=== PATIENT | female | born 1955 | race Caucasian/White ===

== ENCOUNTER → 2019-05-10 15:26 | Outpatient (CLI) | payer BC, SELFPAY ==
--- NOTE | 2019-05-10 15:29 | XR_ITS ---
PROCEDURE: XR ANKLE WT BEARING LT MIN 3V CLINICAL INDICATION: Fracture follow-up Pain following injury COMPARISON: XR ANKLE LT MIN 3V from 04/15/2019 FINDINGS: Ankle joint has an unremarkable appearance. Lateral soft tissue swelling has improved. A small calcific density is present along the anterior and distal aspect of the talus and may represent an avulsion type fracture not significantly changed. This could also be due to small osteophyte. IMPRESSION: No change small osteophyte versus avulsion fracture of the anterior distal talus Dictated by: Nikhil Jaime MD 05/10/2019 17:21 Electronically signed by Nikhil Jaime MD in [place] 05/10/2019 17:21
== END ==
PROVIDERS: PCP Family Medicine; Visit Provider Podiatrist
DX: S93.492D Sprain of other ligament of left ankle, subsequent encounter (principal); M25.572 Pain in left ankle and joints of left foot
CPT/HCPCS: 73610

== ENCOUNTER 2020-07-08 17:29 | Emergency (ER) | payer BC, SELFPAY ==
[2020-07-08 18:12] VITALS: BP 144/82; PULSE 130; RESP 14; TEMP 36.8; O2SAT 98; BMI 22.8
--- NOTE | 2020-07-08 18:18 | HMH.EDUTC ---
[facility] [place] Disposition Clinical Impression: Exposure to COVID-19 virus Pharyngitis Qualifiers: Pharyngitis/tonsillitis etiology: other specified organisms Qualified Code(s): J02.8 - Acute pharyngitis due to other specified organisms Disposition: Home, Self-Care Condition on Discharge: Good Instructions: Preventing the Spread of Coronavirus Discharge Instructions Additional Instructions: Drink plenty of fluids. Take tylenol for pain or fever. Take the medications as directed. Follow up with your regular doctor. GO TO THE ER FOR ANY WORSENING SYMPTOMS Prescriptions: Azithromycin [Z-Yfn 250mg Tab*] 250 mg PO UD DOSE PK #6 tab Transmission Status: Received by [facility] Referrals: Naun Blue MD [Primary Care Provider] - Time of Disposition: 18:24 Medical Decision Making - Medical Records Medical records reviewed: No: I reviewed the patient's medical records. - Jose David Inquiry Pt receiving controlled substance: No Vital Signs: 07/08/20 18:12 07/08/20 18:34 Temperature 98.3 F 98.3 F Temperature Source Oral Oral Pulse Rate 125 H Pulse Rate [Right] 130 H Respiratory Rate 14 16 Blood Pressure 140/80 Blood Pressure [Right Arm] 144/82 H Blood Pressure Mean [Right Arm] 102 Blood Pressure Source Automatic Cuff Blood Pressure Source [Right Arm] Automatic Cuff Blood Pressure Position Sitting Blood Pressure Position [Right Arm] Sitting 02 Sat by Pulse Oximetry 98 Oxygen Delivery Method Room Air Orders (Tests/Meds): ORDERS Category Date Time Status Covid-19 Nasal PCR ([facility]) Routine Lab 07/08/20 18:00 Received [facility] [place] HPI - General Stated complaint: Sore throat, cough, Shortness of breath, headache Time Seen by Provider: 07/08/20 18:18 Mode of Arrival: Ambulatory Source of Information: Patient Limitations: No Limitations Description of Symptoms (Recalled from Triage Doc. by RN): sore throat with blisters HEENT Symptoms (Recalled from RN notes): No Resp Symptoms (Recalled from RN notes): No Skin Symptoms (Recalled from RN notes): No MS Symptoms (Recalled from RN notes): No Functional Status (Recalled from RN notes): na - History of Present Illness Provider Complaint: She c/o cough and sinus congestion for the past 2 days. She has flown back from [place] recently, so she has been exposed to covid. - Related Data Home Medications Medication Instructions Recorded Confirmed Cholecalciferol (Vitamin D3) 2,000 unit PO DAILY 04/15/19 05/10/19 [Vitamin D3 1,000 Unit Cap] Estrogens, Conjugated [Premarin] 0.625 mg PO DAILY 04/15/19 05/10/19 Hydroxychloroquine Sulfate 200 mg PO DAILY 04/15/19 05/10/19 [Plaquenil 200mg tablet] Leflunomide [Arava] 20 mg PO DAILY 04/15/19 05/10/19 Omeprazole Magnesium [Prilosec Otc 40 mg PO DAILY 04/15/19 05/10/19 20mg Tab] levothyroxine 137 mcg tablet 137 mcg PO #90 tab 05/10/19 05/10/19 Previous Rx's Medication Instructions Recorded Azithromycin [Z-Yfn 250mg Tab*] 250 mg PO UD DOSE PK #6 tab 07/08/20 Allergies Allergy/AdvReac Type Severity Reaction Status Date / Time No Known Allergies Allergy Verified 05/10/19 16:12 - Worker's Comp Is this a Worker's Comp case?: No [facility] History - Hepatitis A Screen Drug use history?: No High risk sexual behaviors?: No History of sexually transmitted infection?: No Currently employed?: No Childcare worker?: No Do you have indoor plumbing?: Yes Do you have electricity?: Yes Attestation statement:: This patient has been screened for Hepatitis A risk factors. I have reviewed the patient's past medical history: Yes Other Medical History: Reports: Arthritis (rheumatoid ), Hypothyroidism, Other (lupus ) Other Surgeries: Yes: Appendectomy, Hysterectomy-Total Amputation: No Fractures: No - Social History Smoking Status: Never smoker Alcohol Intake: current Alcohol Intake Frequency:: holidays/special occasions only Substance Use Type: denies use Occupational Status
[2020-07-08 18:34] VITALS: BP 140/80; PULSE 125; RESP 16; TEMP 36.8; O2SAT 98
== END 2020-07-08 18:35 | disposition home or self-care (01) ==
PROVIDERS: Emergency Provider Nurse Practitioner Family; PCP Family Medicine
DX: Z20.828 Contact with and (suspected) exposure to other viral communicable diseases (principal); J02.8 Acute pharyngitis due to other specified organisms; E03.9 Hypothyroidism, unspecified
CPT/HCPCS: 99201; U0003

== ENCOUNTER → 2021-01-25 10:40 | Outpatient (CLI) | payer BC, SELFPAY ==
[2021-01-25 11:12] LABS: Basophils # 0.1 K/mm3 (0-0.2); Eosinophils # 0.1 K/mm3 (0.0-0.4); Eosinophils % 2.3 % (0.1-12.0); Hematocrit 38.2 % (37.0-47.0); Hemoglobin 12.4 g/dL (12.2-16.2); Lymphocytes # 1.1 K/mm3 (0.7-4.5); Lymphocytes % 19.9 % (10-50); Mean Corpuscular HGB Conc 32.4 g/dL (31.8-35.4); Mean Corpuscular Hemoglobin 31.6 pg (27.0-31.2); Mean Corpuscular Volume 97.5 fl (81-99); Mean Platelet Volume 7.6 fl (7.4-10.4); Monocytes # 0.3 K/mm3 (0.1-1.0); Monocytes % 5.9 % (1.7-9.3); Neutrophils % 70.9 % (37.0-80.0); Platelet Count 229 K/mm3 (142-424); Red Blood Count 3.92 M/mm3 (4.20-5.40); Red Cell Distribution Width 13.4 % (11.5-17.5); White Blood Count 5.7 K/mm3 (4.8-10.8)
[2021-01-25 12:08] LABS: Erythrocyte Sedimentation Rate 37 mm/hr (0-30)
[2021-01-25 12:20] LABS: Alanine Aminotransferase 24 U/L (12-78); Albumin Level 4.1 g/dl (3.5-5.0); Albumin/Globulin Ratio 1.6 (1.1-1.8); Alkaline Phosphatase 85 U/L (38-126); Anion Gap 6.2 mEq/L (5-15); Aspartate Amino Transferase 32 U/L (14-36); Bilirubin,Total 0.6 mg/dl (0.2-1.3); Blood Urea Nitrogen 16 mg/dl (7-17); Calcium 9.2 mg/dl (8.4-10.2); Carbon Dioxide 31 mmol/L (22.0-30.0); Chloride 108 mmol/L (98-107); Estimated Glomerular Filt Rate 72 ml/min (>60); GFR (African American) 87 ML/MIN (>60); Globulin 2.6 g/dL (1.3-3.2); Glucose 62 mg/dl (74-100); Potassium 4.2 mmoL/L (3.5-5.1); Sodium 141 mmol/L (136-145); Total Protein,Serum 6.7 g/dl (6.3-8.2)
[2021-01-25 12:25] LABS: C-Reactive Protein 1.4 mg/L (0-4)
[2021-01-25 12:37] LABS: T4 (Thyroxine) 11.1 ug/dl (5.53-11.0)
[2021-01-25 12:51] LABS: Thyroid Stimulating Hormone 0.71 uIU/mL (0.465-4.68)
== END ==
PROVIDERS: PCP Family Medicine; Visit Provider Family Medicine
DX: M06.9 Rheumatoid arthritis, unspecified (principal); E03.9 Hypothyroidism, unspecified; L93.0 Discoid lupus erythematosus
CPT/HCPCS: 36415; 80053; 84436; 84443; 85025; 85651; 86140

== ENCOUNTER → 2021-01-28 15:13 | Outpatient (CLI) | payer BC, SELFPAY | PROVIDERS: PCP Family Medicine; Visit Provider Family Medicine | DX: I47.1 Supraventricular tachycardia (principal) | CPT/HCPCS: 93306 ==

== ENCOUNTER → 2021-01-30 17:27 | Outpatient (CLI) | payer BC, SELFPAY | PROVIDERS: PCP Family Medicine; Visit Provider Family Medicine | DX: I47.1 Supraventricular tachycardia (principal) | CPT/HCPCS: 93225; 93226 ==

== ENCOUNTER 2021-04-10 20:11 | Emergency (ER) | payer BC, SELFPAY ==
[2021-04-10 20:15] VITALS: BP 159/84; PULSE 108; RESP 16; TEMP 36.9; O2SAT 96; BMI 23.6
--- NOTE | 2021-04-10 20:37 | HMH.EDUTC ---
[facility] [place] Disposition Clinical Impression: Sinusitis Qualifiers: Sinusitis location: unspecified location Chronicity: unspecified Qualified Code(s): J32.9 - Chronic sinusitis, unspecified Disposition: Home, Self-Care Condition on Discharge: Good Instructions: Sinusitis, Sinus Headache, DI for Sinusitis, DI for Cough -- Adult Additional Instructions: *Monitor Temp, Over the counter Motrin or Tylenol as directed/as needed Tylenol every 4 hours and Motrin every 6 hours (as long as your family doctor has told you that you can take it) for fever or pain. and straight to ER if unable to lower temp less than 101.0 after medication given *Warm salt water gargles may help to soothe the throat *Throat Lozenges *Warm fluids like tea with honey may help to soothe the throat *Sleep elevated *Humidifier/Vaporizer *Flonase 2 sprays in each nostril daily but be aware that it may take 2-3 days before you notice improvement *Bromfed may cause drowsiness. Know how it effects you (your child) before driving, caring for small child, or sending your child to school. Not other antihistamines/allergy medications while taking bromfed Take antibiotics as prescribed Follow up IMMEDIATELY for new or worsening symptoms or no Noticeable improvement over the next 48-72 hours. 911 for difficulty breathing or swallowing You were tested for today for COVID19 your test result should be back in the next 24-48 hours, you may call to the [facility] to see if your test results are back in the next 48 hours [phone] [facility] hours are 9am-9pm You was given a handout with instructions for Self Quarantine and Self isolation for while you wait on test results and what to do if they are positive If you are positive the Health Dept will be contacting you also Make sure to take your Vitamins Vit. C Vit D and Zinc if you can take them Prescriptions: Amoxicillin/Potassium Clav [Augmentin 875-125 Tablet] 1 tab PO Q12H 7 Days #14 tab Transmission Status: Pending to [facility] Brompheniramine/Pseudoephed/Dm [Bromfed Dm Cough Syrup] 5 - 10 ml PO Q46H PRN #250 ml PRN Reason: Cough Transmission Status: Pending to [facility] Fluticasone Propionate [Flonase 50mcg nasal spray 16gm] 1 spr NS DAILY #1 ml Transmission Status: Pending to [facility] Referrals: Naun Blue MD [Primary Care Provider] - As needed Time of Disposition: 20:48 Medical Decision Making - Jose David Inquiry Pt receiving controlled substance: No Jose David was queried for this patient: No Vital Signs: 04/10/21 20:15 Temperature 98.4 F Temperature Source Oral Pulse Rate [Right Brachial] 108 H Respiratory Rate 16 Blood Pressure [Right Arm] 159/84 H Blood Pressure Mean [Right Arm] 109 Blood Pressure Source [Right Arm] Automatic Cuff Blood Pressure Position [Right Arm] Sitting 02 Sat by Pulse Oximetry 96 Oxygen Delivery Method Room Air Orders (Tests/Meds): ORDERS Category Date Time Status Full Resp Panel w/COVID ([facility]) Routine Lab 04/10/21 20:28 Ordered Medical Decision Narrative: Medication discussed with pharmacy [facility] [place] HPI - General Stated complaint: cough,ORTEZ,Congestion Time Seen by Provider: 04/10/21 20:37 Mode of Arrival: Ambulatory Source of Information: Patient Limitations: No Limitations Description of Symptoms (Recalled from Triage Doc. by RN): patient c/o cough, congestion, and headache HEENT Symptoms (Recalled from RN notes): Yes Resp Symptoms (Recalled from RN notes): Yes Skin Symptoms (Recalled from RN notes): No MS Symptoms (Recalled from RN notes): No Functional Status (Recalled from RN notes): wnl - History of Present Illness Provider Complaint: Patient states that she thinks she may have a sinus infection States that she has been having sinus pain and pressure for about a week that has continued to get worse States that she also wanted to get tested for COVID to be safe but feels like it did before when she had a sinus infection States that
[2021-04-10 20:52] VITALS: BP 159/84; PULSE 108; RESP 16; TEMP 36.9; O2SAT 96
[2021-04-10 21:15] LABS: Adenovirus,PCR Not Detected (NotDetected); Bordetella Pertussis Not Detected (NotDetected); Chlamydophila Pneumoniae, PCR Not Detected (NotDetected); Coronavirus 229E Not Detected (NotDetected); Coronavirus NL63 Not Detected (NotDetected); Coronavirus OC43 Not Detected (NotDetected); Coronovirus HKU1,PCR Not Detected (NotDetected); Human Metapneumovirus Not Detected (NotDetected); Influenza A, PCR Not Detected (NotDetected); Influenza AH1, 2009 Not Detected (NotDetected); Influenza AH1, PCR Not Detected (NotDetected); Influenza AH3,PCR Not Detected (NotDetected); Influenza B, PCR Not Detected (NotDetected); Mycoplasma Pneumoniae, PCR Not Detected (NotDetected); Parainfluenza 1, PCR Not Detected (NotDetected); Parainfluenza 2, PCR Not Detected (NotDetected); Parainfluenza 3, PCR Not Detected (NotDetected); Parainfluenza 4, PCR Not Detected (NotDetected); Respiratory Syncytial Virus Not Detected (NotDetected); Rhinovirus/Enterovirus Not Detected (NotDetected)
[2021-04-11 12:56] LABS: Coronavirus 19, PCR Detected (NotDetected)
--- NOTE | 2021-04-11 19:50 | PC.NURSE ---
PT NOTIFIED OF POSITIVE COVID RESULTS
== END 2021-04-10 20:56 | disposition home or self-care (01) ==
PROVIDERS: Emergency Provider Nurse Practitioner; PCP Family Medicine
DX: U07.1 COVID-19 (principal); J32.9 Chronic sinusitis, unspecified; E03.9 Hypothyroidism, unspecified
CPT/HCPCS: 87581; 87633; 87798; 99202; G0463

== ENCOUNTER → 2021-05-06 17:25 | Outpatient (CLI) | payer BC, SELFPAY | PROVIDERS: PCP Family Medicine; Visit Provider Nurse Practitioner | DX: Z20.822 Contact with and (suspected) exposure to COVID-19 (principal) | CPT/HCPCS: C9803; U0003; U0005 ==

== ENCOUNTER 2021-07-15 11:03 | Emergency (ER) | payer BC, SELFPAY ==
[2021-07-15 11:03] VITALS: BP 166/86; PULSE 144; RESP 20; TEMP 36.9; O2SAT 98; BMI 24.3
--- NOTE | 2021-07-15 11:13 | ECG_ITS ---
APPROVED REPORT Exam: Resting ECG HR:157 bpm ECG Measurements Heart Rate 157 AXES DE 176 P QRSd 72 QRS 46 QT 318 T 34 QTc 514 Conclusion Sinus tachycardia Otherwise normal ECG Electronically signed by : Tiago Ulloa MD 07/17/2021 12:14:17
[2021-07-15 11:14] VITALS: BP 166/86; PULSE 189; RESP 22; O2SAT 95
--- NOTE | 2021-07-15 11:18 | HMH.EDGENADL ---
ED Disposition Clinical Impression: Supraventricular tachycardia Disposition: Home, Self-Care Condition on Discharge: Good Additional Instructions: Take metoprolol as prescribed. Follow-up with primary care provider in the office, call for appointment. Return to the emergency department if symptoms recur. Prescriptions: Metoprolol Succinate [Metoprolol Succinate 25mg Tablet*] 25 mg PO Q12H #30 tab Transmission Status: Received by [facility] Referrals: Naun Blue MD [Primary Care Provider] - - Critical Care Critical Care Time: No Attestation: On 07/15/21, the high probability of a clinically significant, sudden or life threatening deterioration of the following system(s) required my full and direct attention, intervention and personal management. The time I documented below is in addition to time spent performing reported procedures but includes the following listed in this critical care notation. Medical Decision Making - Medical Records Medical records reviewed: Yes: I reviewed the patient's medical records. MR Comment: Prior echocardiogram and Holter monitor results reviewed from January of this year. Holter monitor did not show any episodes of atrial fibrillation, but there were episodes of supraventricular tachycardia. Echocardiogram showed what was thought to most likely be artifact, but could not rule out LV thrombus. - Jose David Inquiry Pt receiving controlled substance: No Vital Signs: 07/15/21 11:03 07/15/21 11:14 07/15/21 11:30 Temperature 98.5 F Temperature Source Oral Pulse Rate 189 H 104 H Pulse Rate [Radial] 144 H Respiratory Rate 20 22 16 Blood Pressure 166/86 H 155/86 H Blood Pressure [Right Radial Artery] 166/86 H Blood Pressure Mean 104 109 Blood Pressure Mean [Right Radial Artery] 112 Blood Pressure Position [Right Radial Artery] Sitting 02 Sat by Pulse Oximetry 98 95 98 Oxygen Delivery Method Room Air 07/15/21 12:00 07/15/21 12:30 Temperature Temperature Source Pulse Rate 102 H 95 H Pulse Rate [Radial] Respiratory Rate 22 18 Blood Pressure 133/71 139/83 Blood Pressure [Right Radial Artery] Blood Pressure Mean 97 98 Blood Pressure Mean [Right Radial Artery] Blood Pressure Position [Right Radial Artery] 02 Sat by Pulse Oximetry 96 97 Oxygen Delivery Method - Lab Data Lab Results 07/15/21 11:15: WBC 5.6, RBC 4.19 L, Hgb 13.5, Hct 42.3, MCV 101.1 H, MCH 32.3 H, MCHC 31.9, RDW 13.4, Plt Count 209, MPV 8.2, Neut % (Auto) 68.4, Lymph % (Auto) 21.7, Gibson % (Auto) 5.7, Eos % (Auto) 2.9, Baso % (Auto) 1.3, Neut # (Auto) 3.9, Lymph # (Auto) 1.2, Gibson # (Auto) 0.3, Eos # (Auto) 0.2, Baso # (Auto) 0.1 07/15/21 11:15: Sodium 138, Potassium 4.0, Chloride 103, Carbon Dioxide 30, Anion Gap 9.0, BUN 18 H, Creatinine 0.80, Estimated Creat Clear 65, Estimated GFR 72, Est GFR ( Amer) 87, Glucose 79, Calcium 9.4, Troponin I < 0.01, TSH 2.33, Thyroxine (T4) 16.0 H 07/15/21 11:15: Free T4 1.52 07/15/21 13:05: Troponin I 0.01 Result diagrams: 07/15/21 11:15 07/15/21 11:15 Orders (Tests/Meds): ORDERS Category Date Time Status Troponin I Q3H Lab 07/15/21 17:30 Ordered - Radiology Data #1 Image(s): Chest Image Reviewed: Yes I reviewed the patient's radiology image, Yes I have reviewed radiologist's interpretation PROCEDURE: XR CHEST PORTABLE CLINICAL HISTORY: chest pain COMPARISON: CT ABDPELW/O CT ABD PELVIS W/O CONTRAST from 06/17/2013 CR CXR CHEST(2 VIEWS-NOT PORTABLE) from 01/01/2014 FINDINGS: The cardiomediastinal silhouette and pulmonary vascularity are within normal limits. Chronic blunting of the CP angles with minimal scarring in the left lower lobe. No lobar consolidation or collapse. Stable sclerotic foci in the proximal right humerus IMPRESSION: Chronic blunting of the CP angle suggesting small effusions or pleural thickening not significantly changed Dictated by: Mundo Jaime
--- NOTE | 2021-07-15 11:28 | ECG_ITS ---
APPROVED REPORT Exam: Resting ECG HR:98 bpm ECG Measurements Heart Rate 98 AXES OR 150 P 45 QRSd 74 QRS 35 QT 358 T 44 QTc 457 Conclusion Normal sinus rhythm Normal ECG Electronically signed by : Tiago Ulloa MD 07/17/2021 12:14:09
[2021-07-15 11:30] VITALS: BP 155/86; PULSE 104; RESP 16; O2SAT 98
[2021-07-15 11:30] LABS: Basophils # 0.1 K/mm3 (0-0.2); Basophils % 1.3 % (0.1-2.0); Eosinophils # 0.2 K/mm3 (0.0-0.4); Eosinophils % 2.9 % (0.1-12.0); Hematocrit 42.3 % (37.0-47.0); Hemoglobin 13.5 g/dL (12.2-16.2); Lymphocytes # 1.2 K/mm3 (0.7-4.5); Lymphocytes % 21.7 % (10-50); Mean Corpuscular HGB Conc 31.9 g/dL (31.8-35.4); Mean Corpuscular Hemoglobin 32.3 pg (27.0-31.2); Mean Corpuscular Volume 101.1 fl (81-99); Mean Platelet Volume 8.2 fl (7.4-10.4); Monocytes # 0.3 K/mm3 (0.1-1.0); Monocytes % 5.7 % (1.7-9.3); Neutrophils # 3.9 K/mm3 (1.8-7.8); Neutrophils % 68.4 % (37.0-80.0); Platelet Count 209 K/mm3 (142-424); Red Blood Count 4.19 M/mm3 (4.20-5.40); Red Cell Distribution Width 13.4 % (11.5-17.5); White Blood Count 5.6 K/mm3 (4.8-10.8)
[2021-07-15 11:34] LABS: Chloride 103 mmol/L (98-107); Sodium 138 mmol/L (136-145)
[2021-07-15 11:37] LABS: Blood Urea Nitrogen 18 mg/dl (7-17); Calcium 9.4 mg/dl (8.4-10.2); Carbon Dioxide 30 mmol/L (22.0-30.0); Creatinine Clearance Estimated 65 mL/min (50-200); Estimated Glomerular Filt Rate 72 ml/min (>60); GFR (African American) 87 ML/MIN (>60); Glucose 79 mg/dl (74-100)
[2021-07-15 11:56] LABS: Troponin I < 0.01 ng/ml (0.00-0.034)
[2021-07-15 12:00] VITALS: BP 133/71; PULSE 102; RESP 22; O2SAT 96
[2021-07-15 12:25] LABS: Thyroid Stimulating Hormone 2.33 uIU/mL (0.465-4.68)
[2021-07-15 12:30] VITALS: BP 139/83; PULSE 95; RESP 18; O2SAT 97
[2021-07-15 12:37] LABS: Free T4 (Free Thyroxine) 1.52 ng/dl (0.78-2.19)
--- NOTE | 2021-07-15 12:40 | PC.NURSE ---
Dr Scott speaking to Dr Blue
--- NOTE | 2021-07-15 12:43 | PC.NURSE ---
called rt for echo, could not get hold of vascular, they were going to tell them.
[2021-07-15 13:44] LABS: Troponin I 0.01 ng/ml (0.00-0.034)
[2021-07-15 13:54] VITALS: BP 134/77; PULSE 87; RESP 16; TEMP 36.6; O2SAT 98
== END 2021-07-15 13:56 | disposition home or self-care (01) ==
PROVIDERS: Emergency Provider Emergency Medicine; PCP Family Medicine
DX: I47.1 Supraventricular tachycardia (principal); M06.9 Rheumatoid arthritis, unspecified; E03.9 Hypothyroidism, unspecified; Z79.899 Other long term (current) drug therapy
CPT/HCPCS: 71045; 80048; 84436; 84439; 84443; 84484; 85025; 93005; 93306; 99283

== ENCOUNTER → 2021-08-19 12:28 | Outpatient (CLI) | payer BC, SELFPAY | PROVIDERS: PCP Family Medicine; Visit Provider Urology | DX: G47.33 Obstructive sleep apnea (adult) (pediatric) (principal); R06.00 Dyspnea, unspecified; R40.0 Somnolence; R06.83 Snoring | CPT/HCPCS: 95806 ==

== ENCOUNTER → 2021-10-17 08:13 | Outpatient (CLI) | payer BC, SELFPAY ==
[2021-10-17 09:12] LABS: Basophils # 0.1 K/mm3 (0-0.2); Basophils % 1.1 % (0.1-2.0); Eosinophils # 0.2 K/mm3 (0.0-0.4); Eosinophils % 5.4 % (0.1-12.0); Hematocrit 40.2 % (37.0-47.0); Hemoglobin 12.9 g/dL (12.2-16.2); Lymphocytes # 0.9 K/mm3 (0.7-4.5); Lymphocytes % 22.2 % (10-50); Mean Corpuscular Hemoglobin 31.9 pg (27.0-31.2); Mean Corpuscular Volume 99.5 fl (81-99); Mean Platelet Volume 7.3 fl (7.4-10.4); Monocytes # 0.3 K/mm3 (0.1-1.0); Monocytes % 7.4 % (1.7-9.3); Neutrophils # 2.7 K/mm3 (1.8-7.8); Neutrophils % 63.8 % (37.0-80.0); Platelet Count 215 K/mm3 (142-424); Red Blood Count 4.04 M/mm3 (4.20-5.40); Red Cell Distribution Width 13.2 % (11.5-17.5); White Blood Count 4.1 K/mm3 (4.8-10.8)
[2021-10-17 09:28] LABS: Hemoglobin A1C 4.8 % (4.0-6.0)
[2021-10-17 09:32] LABS: Anion Gap 7.1 mEq/L (5-15); Blood Urea Nitrogen 16 mg/dl (7-17); Calcium 8.7 mg/dl (8.4-10.2); Carbon Dioxide 31 mmol/L (22.0-30.0); Chloride 106 mmol/L (98-107); Chol/HDL Ratio 1.8 (1-3.5); Cholesterol 177 mg/dl (140-200); Estimated Glomerular Filt Rate 84 ml/min (>60); GFR (African American) 102 ML/MIN (>60); Glucose 83 mg/dl (74-100); HDL Cholesterol 101 mg/dl (40-60); Potassium 4.1 mmoL/L (3.5-5.1); Sodium 140 mmol/L (136-145); Triglycerides 52 mg/dl (30-150); VLDL Cholesterol 10 mg/dL (0-40)
[2021-10-17 09:42] LABS: Direct LDL Cholesterol 62.27 mg/dL (100-129)
[2021-10-17 11:00] LABS: Erythrocyte Sedimentation Rate 22 mm/hr (0-30)
== END ==
PROVIDERS: PCP Family Medicine; Referring Provider Family Medicine Addiction Medicine; Visit Provider Family Medicine
DX: H34.8312 Tributary (branch) retinal vein occlusion, right eye, stable (principal)
CPT/HCPCS: 36415; 80048; 80061; 83036; 85025; 85651

== ENCOUNTER 2022-01-19 17:23 | Emergency (ER) | payer BC, MEDICARE, SELFPAY ==
[2022-01-19 17:39] VITALS: BP 140/84; PULSE 95; RESP 17; TEMP 36.7; O2SAT 99; BMI 24.3
--- NOTE | 2022-01-19 17:40 | XR_ITS ---
PROCEDURE INFORMATION: Exam: XR Chest Exam date and time: 01/19/2022 5:36 PM Age: 67 years old Clinical indication: Cough TECHNIQUE: Imaging protocol: XR of the chest. Views: 2 views. COMPARISON: CR XR CHEST PORTABLE 07/15/2021 11:34 AM FINDINGS: Lungs: There is a granuloma again demonstrated in the left mid lung. Pleural spaces: Chronic blunting of the costophrenic angles. Minimal regions of parenchymal scarring again demonstrated in the left lower lobe. Hyperlucent changes are demonstrated. There is flattening of the hemidiaphragms. Increase in the lung volumes is demonstrated. Heart/Mediastinum: Unremarkable. No cardiomegaly. Bones/joints: Unremarkable. IMPRESSION: 1. Mild chronic obstructive pulmonary disease. Findings stable. 2. Evidence of prior granulomatous disease. 3. No evidence of acute cardiopulmonary disease.
--- NOTE | 2022-01-19 17:46 | HMH.EDUTC ---
[facility] [place] Disposition Clinical Impression: Sinusitis Qualifiers: Sinusitis location: unspecified location Chronicity: acute Recurrence: non-recurrent Qualified Code(s): J01.90 - Acute sinusitis, unspecified Disposition: Home, Self-Care Condition on Discharge: Good Instructions: DI for Sinusitis Additional Instructions: Drink plenty of fluids. Take tylenol or ibuprofen for pain or fever. Take the medications as directed. Follow up with your regular doctor. GO TO THE ER FOR ANY WORSENING SYMPTOMS Don't start the oral steroids until tomorrow, since you had the shot here today. Prescriptions: Benzonatate [Benzonatate 100mg cap] 100 mg PO TIDP PRN #30 cap PRN Reason: Cough Transmission Status: Pending to [facility] methylPREDNISolone [Medrol] 4 mg PO DIRECTED 6 Days #21 packet Transmission Status: Pending to [facility] guaiFENesin [Mucinex 600mg tablet] 1 - 2 tab PO BIDP PRN #30 tab PRN Reason: Congestion Transmission Status: Pending to [facility] Azithromycin [Z-Yfn 250mg Tab*] 250 mg PO UD DOSE PK #6 tab Transmission Status: Pending to [facility] Referrals: Toi Aguila MD [Primary Care Provider] - Time of Disposition: 18:12 Medical Decision Making - Medical Records Medical records reviewed: No: I reviewed the patient's medical records. - Jose David Inquiry Pt receiving controlled substance: No Vital Signs: 01/19/22 17:39 Temperature 98.1 F Temperature Source Oral Pulse Rate [Left Radial] 95 H Respiratory Rate 17 Blood Pressure [Right Arm] 140/84 Blood Pressure Mean [Right Arm] 102 02 Sat by Pulse Oximetry 99 - Lab Data Lab results reviewed: Yes: I reviewed the patient's lab results. Orders (Tests/Meds): ED MEDICATIONS Discontinued Medications Generic Name Dose Route Start Last Admin Trade Name Freq PRN Reason Stop Dose Admin Methylprednisolone Sodium Succinate 125 mg 01/19/22 18:02 Methylprednisolone Sod Succ 125mg Vial IM 01/19/22 18:03 ONCE ONE ORDERS Category Date Time Status Chest XR 2 view (NOT portable) [XR chest 2V] Stat Exams 01/19/22 17:40 Taken Covid-19 Nasal PCR ([facility]) Routine Lab 01/19/22 18:01 Ordered [facility] [place] HPI - General Stated complaint: congestion and sore throat Time Seen by Provider: 01/19/22 17:47 Source of Information: Patient Description of Symptoms (Recalled from Triage Doc. by RN): patient is here with complaints of cough, congestion, spitting up green mucus. patient states symptoms began tuesday night, she started feeling better. then began producing green mucus. patient would like to be tested for covid also. HEENT Symptoms (Recalled from RN notes): No Resp Symptoms (Recalled from RN notes): Yes Skin Symptoms (Recalled from RN notes): No MS Symptoms (Recalled from RN notes): No Functional Status (Recalled from RN notes): wnl - History of Present Illness Provider Complaint: She states that for the past 3 days she has had worsening sinus congestion, a dry cough and chills. She took a home covid-19 test and it was negative 2 days ago. She believes she has a sinus infection. - Related Data Home Medications Medication Instructions Recorded Confirmed Estrogens, Conjugated [Premarin] 0.625 mg PO DAILY 04/15/19 08/17/21 Hydroxychloroquine Sulfate 200 mg PO DAILY 04/15/19 08/17/21 [Plaquenil 200mg tablet] Leflunomide [Arava] 20 mg PO DAILY 04/15/19 08/17/21 levothyroxine 150 mcg tablet 150 mcg PO DAILY tab 08/17/21 08/17/21 pantoprazole 40 mg tablet,delayed 40 mg PO DAILY tab 08/17/21 08/17/21 release Previous Rx's Medication Instructions Recorded metoprolol succinate 25 mg 25 mg PO DAILY #90 tab 08/17/21 tablet,extended release 24 hr Azithromycin [Z-Yfn 250mg Tab*] 250 mg PO UD DOSE PK #6 tab 01/19/22 Benzonatate [Benzonatate 100mg 100 mg PO TIDP PRN #30 cap 01/19/22 cap] guaiFENesin [Mucinex 600mg tablet] 1 - 2 tab PO BIDP PRN #30 tab 05
[2022-01-19 18:17] VITALS: BP 140/84; PULSE 95; RESP 17; TEMP 36.7
== END 2022-01-19 18:17 | disposition home or self-care (01) ==
PROVIDERS: Emergency Provider Nurse Practitioner Family; PCP Family Medicine
DX: J01.90 Acute sinusitis, unspecified (principal)
CPT/HCPCS: 71046; 96372; 99212; C9803; G0463; U0003; U0005

== ENCOUNTER → 2022-02-24 08:34 | Outpatient (CLI) | payer BC, SELFPAY ==
--- NOTE | 2022-02-24 08:37 | MM_ITS ---
PROCEDURE INFORMATION: Exam: MG Bilateral Screening 3D Mammography Exam date and time: 02/24/2022 8:35 AM Age: 67 years old Clinical indication: Screening mammogram TECHNIQUE: Imaging protocol: Bilateral Screening tomosynthesis and 2D mammography including computer-aided detection (CAD) when performed. COMPARISON: 1. MG DMSB DIG MAMM-SCREEN RACHID 08/19/2015 8:37 AM 2. MG DMSB DIG MAMM-SCREEN RACHID 07/10/2014 4:46 PM 3. MG DMSB DIGITAL MAMM-SCREEN BILATERAL 12/30/2011 3:11 PM 4. MG DMSB DIGITAL MAMM-SCREEN BILATERAL 09/01/2010 4:35 PM FINDINGS: MAMMOGRAPHY: Breast composition: There are scattered areas of fibroglandular density. Mass: None. Architectural distortion: No new or suspicious architectural distortion. Calcifications: No new or suspicious calcifications are present Asymmetric density: No new or suspicious asymmetric density is present Skin thickening: None. Axillary adenopathy: None. IMPRESSION: No mammographic evidence of malignancy. Recommend annual screening mammography unless otherwise clinically indicated. ASSESSMENT: BI-RADS category 1: Negative
== END ==
PROVIDERS: PCP Family Medicine; Visit Provider Family Medicine
DX: Z12.31 Encounter for screening mammogram for malignant neoplasm of breast (principal)
CPT/HCPCS: 77063; 77067

== ENCOUNTER 2022-03-19 17:23 | Emergency (ER) | payer BC, MEDICARE, SELFPAY ==
[2022-03-19 17:37] VITALS: BP 113/86; PULSE 93; RESP 17; TEMP 36.7; O2SAT 96; BMI 24.6
--- NOTE | 2022-03-19 17:48 | HMH.EDUTC ---
[facility] [place] Disposition Clinical Impression: Exposure to COVID-19 virus Disposition: Home, Self-Care Condition on Discharge: Good Instructions: Preventing the Spread of Coronavirus Discharge Instructions, DI for COVID-19 (Suspected or Confirmed ) Additional Instructions: Drink plenty of fluids. Take tylenol or ibuprofen for pain or fever. Follow up with your regular doctor. GO TO THE ER FOR ANY WORSENING SYMPTOMS Quarantine until you know the results of your covid-19 test. Notify your school or workplace of your results and follow their instructions regarding return to work/school. Referrals: Naun Blue MD [Primary Care Provider] - Time of Disposition: 17:49 Medical Decision Making - Medical Records Medical records reviewed: No: I reviewed the patient's medical records. - Jose David Inquiry Pt receiving controlled substance: No Vital Signs: 03/19/22 17:37 Temperature 98.0 F Temperature Source Oral Pulse Rate [Left] 93 H Respiratory Rate 17 Blood Pressure [Right Arm] 113/86 Blood Pressure Mean [Right Arm] 95 02 Sat by Pulse Oximetry 96 Orders (Tests/Meds): ORDERS Category Date Time Status Covid-19 Nasal PCR ([facility]) Routine Lab 03/19/22 17:29 Ordered [facility] [place] HPI - General Stated complaint: exposed covid test Time Seen by Provider: 03/19/22 17:40 Mode of Arrival: Ambulatory Source of Information: Patient Limitations: No Limitations Description of Symptoms (Recalled from Triage Doc. by RN): patient comes in for covid test. patient was exposed by daughter on 03/15. patient has no symptoms, but is wanting to be tested due to her elderly mother living with her. HEENT Symptoms (Recalled from RN notes): No Resp Symptoms (Recalled from RN notes): No Skin Symptoms (Recalled from RN notes): No MS Symptoms (Recalled from RN notes): No Functional Status (Recalled from RN notes): n/a - History of Present Illness Provider Complaint: Her daughter currently has covid-19. She was around her daughter before her daughter started to show symptoms. At this time the patient has no symptoms but her 88 year old mother lives with her, so she wants to be checked. - Related Data Home Medications Medication Instructions Recorded Confirmed Estrogens, Conjugated [Premarin] 0.625 mg PO DAILY 04/15/19 08/17/21 Hydroxychloroquine Sulfate 200 mg PO DAILY 04/15/19 08/17/21 [Plaquenil 200mg tablet] Leflunomide [Arava] 20 mg PO DAILY 04/15/19 08/17/21 levothyroxine 150 mcg tablet 150 mcg PO DAILY tab 08/17/21 08/17/21 pantoprazole 40 mg tablet,delayed 40 mg PO DAILY tab 08/17/21 08/17/21 release Previous Rx's Medication Instructions Recorded metoprolol succinate 25 mg 25 mg PO DAILY #90 tab 08/17/21 tablet,extended release 24 hr Azithromycin [Z-Yfn 250mg Tab*] 250 mg PO UD DOSE PK #6 tab 01/19/22 Benzonatate [Benzonatate 100mg 100 mg PO TIDP PRN #30 cap 01/19/22 cap] guaiFENesin [Mucinex 600mg tablet] 1 - 2 tab PO BIDP PRN #30 tab 01/19/22 methylPREDNISolone [Medrol] 4 mg PO DIRECTED 6 Days #21 01/19/22 packet Allergies Allergy/AdvReac Type Severity Reaction Status Date / Time No Known Allergies Allergy Verified 03/19/22 17:42 - Worker's Comp Is this a Worker's Comp case?: No [facility] History - Hepatitis A Screen Attestation statement:: This patient has been screened for Hepatitis A risk factors. I have reviewed the patient's past medical history: Yes Other Medical History: Reports: Arthritis, Hypothyroidism, Other (lupus) Other Surgeries: Yes: Appendectomy, Hysterectomy-Total Amputation: No Fractures: No - Social History Smoking Status: Never smoker Alcohol Intake: never Alcohol Intake Frequency:: holidays/special occasions only Substance Use Type: denies use Occupational Status: other Housing: house Household Members: spouse Family Hx:: Thyroid Disorder (mother ) ROS Obtained: Yes All systems reviewed & no additional complaints - Constitutional Con
[2022-03-19 17:49] VITALS: BP 113/86; PULSE 93; RESP 17; TEMP 36.7
== END 2022-03-19 17:50 | disposition home or self-care (01) ==
PROVIDERS: Emergency Provider Nurse Practitioner Family; PCP Family Medicine
DX: Z03.89 Encounter for observation for other suspected diseases and conditions ruled out (principal); E03.9 Hypothyroidism, unspecified; M19.90 Unspecified osteoarthritis, unspecified site; M32.9 Systemic lupus erythematosus, unspecified; Z20.822 Contact with and (suspected) exposure to COVID-19; Z79.52 Long term (current) use of systemic steroids; Z79.890 Hormone replacement therapy; Z83.49 Family history of other endocrine, nutritional and metabolic diseases
CPT/HCPCS: 99213; C9803; G0463; U0003; U0005

== ENCOUNTER 2022-10-01 16:55 | Emergency (ER) | payer BC, MEDICARE, SELFPAY ==
[2022-10-01 17:15] VITALS: BP 125/60; PULSE 94; RESP 20; TEMP 36.9; O2SAT 97; BMI 24.3
--- NOTE | 2022-10-01 17:17 | EXP.UTC ---
Discharge Plan Disposition Patient Disposition: Home, Self-Care Condition: Good Prescriptions Prescriptions: New prednisone [prednisone] 20 mg tablet 20 mg PO BID 5 Days Qty: 10 0RF amoxicillin-pot clavulanate 875-125 mg Tablet 1 tab PO Q12H Qty: 20 0RF No Action levothyroxine [Euthyrox] 150 mcg tablet 150 mcg PO DAILY pantoprazole 40 mg tablet,delayed release (DR/EC) 40 mg PO DAILY aspirin 81 mg tablet 81 mg PO DAILY metoprolol succinate 25 mg tablet extended release 24 hr 25 mg PO DAILY Qty: 90 3RF leflunomide 20 MG tablet 20 mg PO DAILY conjugated estrogens 0.3 MG tablet 0.625 mg PO DAILY hydroxychloroquine 200 MG tablet 200 mg PO DAILY Referrals Follow up/Referrals: Naun Blue MD [Primary Care Provider] - See instructions Clinical Impressions Clinical Impression: Acute left otitis media Instructions Patient Instructions: DI for Otitis Media (Middle Ear Infection)-Child Discharge ED Provider: Dania Higgins [facility] [place] HPI General Stated complaint: SINUS,joiner cOUGH CONGESTION Time Seen by Provider: 10/01/22 17:40 History of Present Illness Provider Complaint: Sinus headache, congestion, scratchy throat X 2 days. Body aches, chills but no fever. Denies ear pain. Denies vomiting or diarrhea. Onset (ago): day(s) (2) Radiation: non-radiation Relieving factors: none Exacerbating factors: none Associated symptoms: denies other symptoms Treatments prior to arrival: none Related Data Home Medications Medication Instructions Recorded Confirmed conjugated estrogens 0.3 mg tablet 0.625 mg PO DAILY HORMONE 04/15/19 09/15/22 REPLACEMENT hydroxychloroquine 200 mg tablet 200 mg PO DAILY LUPUS 04/15/19 09/15/22 leflunomide 20 mg tablet 20 mg PO DAILY LUPUS 04/15/19 09/15/22 levothyroxine 150 mcg tablet 150 mcg PO DAILY 08/17/21 09/15/22 (Euthyrox) pantoprazole 40 mg tablet,delayed 40 mg PO DAILY 08/17/21 09/15/22 release aspirin 81 mg tablet 81 mg PO DAILY 09/15/22 09/15/22 Previous Rx's Medication Instructions Recorded metoprolol succinate 25 mg 25 mg PO DAILY #90 tabs 09/15/22 tablet,extended release 24 hr amoxicillin 875 mg-potassium 1 tab PO Q12H #20 tabs 10/01/22 clavulanate 125 mg tablet prednisone 20 mg tablet 20 mg PO BID 5 days #10 tabs 10/01/22 Allergies Allergy/AdvReac Type Severity Reaction Status Date / Time No Known Allergies Allergy Verified 10/01/22 17:29 [facility] Disclaimer: The information contained in this section may have been updated after the patient was seen, as this information can be updated by other users. Medical History (Updated 10/01/22 @ 17:49 by TERESO Taylor) History of paroxysmal supraventricular tachycardia Lupus Rheumatoid arthritis Thyroid disorder Surgical History H/O cardiac radiofrequency ablation History of radiofrequency ablation procedure for cardiac arrhythmia Social History Smoking Status: Never smoker alcohol intake: never substance use type: denies use current occupational status: other Travel in the last 8 weeks: Inside the [place] household members: spouse housing: house ROS Obtained: Yes All systems reviewed & no additional complaints except as documented Constitutional Constitutional: Reports fatigue, Reports headache(s) and Reports malaise ENT Ears, Nose, Mouth, and Throat: Reports headache(s), Reports nasal congestion, Reports sinus pain, Reports sinus pressure and Reports sore throat Respiratory Respiratory: Reports cough Neurologic Neurologic: Reports headache(s) Endocrine Endocrine: Reports fatigue Physical Exam General General appearance: alert and in no apparent distress Head Head exam: atraumatic, normocephalic and normal inspection Eye Eye exam: Present normal appearance, PERRL and EOMI ENT ENT ex
[2022-10-01 17:26] LABS: UTC Influenza A Antigen Negative (Negative); UTC Influenza B Antigen Negative (Negative)
[2022-10-01 17:58] VITALS: BP 125/60; PULSE 94; RESP 20; TEMP 36.9; O2SAT 97
== END 2022-10-01 17:57 | disposition home or self-care (01) ==
LOC: UTC 17:53
PROVIDERS: Emergency Provider Physician Assistant; PCP Family Medicine
DX: H66.92 Otitis media, unspecified, left ear (principal)
CPT/HCPCS: 87804; 99212; 99213; G0463

== ENCOUNTER 2022-10-05 18:11 | Emergency (ER) | payer BC, MEDICARE, SELFPAY ==
[2022-10-05 20:00] VITALS: BP 140/90; PULSE 76; RESP 18; TEMP 36.7; O2SAT 98; BMI 24.6
--- NOTE | 2022-10-05 20:12 | EXP.UTC ---
Discharge Plan Disposition Patient Disposition: Home, Self-Care Condition: Good Prescriptions Prescriptions: No Action levothyroxine [Euthyrox] 150 mcg tablet 150 mcg PO DAILY pantoprazole 40 mg tablet,delayed release (DR/EC) 40 mg PO DAILY aspirin 81 mg tablet 81 mg PO DAILY leflunomide 20 MG tablet 20 mg PO DAILY conjugated estrogens 0.3 MG tablet 0.625 mg PO DAILY hydroxychloroquine 200 MG tablet 200 mg PO DAILY amoxicillin-pot clavulanate 875-125 mg Tablet 1 tab PO Q12H Qty: 20 0RF metoprolol succinate 25 mg tablet extended release 24 hr 25 mg PO DAILY Referrals Follow up/Referrals: Naun Blue MD [Primary Care Provider] - See instructions Activity Restrictions/Add. Instructions Additional Instructions/Restrictions: *Monitor Temp, Over the counter Motrin or Tylenol as directed/as needed Tylenol every 4 hours and Motrin every 6 hours (as long as your family doctor has told you that you can take it) for fever or pain. and straight to ER if unable to lower temp less than 101.0 after medication given *Warm salt water gargles may help to soothe the throat *Throat Lozenges? *Warm fluids like tea with honey may help to soothe the throat? *Sleep elevated *Humidifier/Vaporizer Follow up IMMEDIATELY for new or worsening symptoms or no Noticeable improvement over the next 48-72 hours. 911 for difficulty breathing or swallowing You were tested for today for Upper Respiratory Panel with COVID19 your test result should be back in the next 24-48 hours, you may check your results on the [facility] Clinical Impressions Clinical Impression: Exposure to COVID-19 virus Stand Alone Forms Stand Alone Forms: Work/School Release Instructions Patient Instructions: DI for COVID-19 (Suspected or Confirmed ), Preventing the Spread of Coronavirus Discharge Instructions Discharge ED Provider: Doris Mayo [facility] [place] HPI General Stated complaint: Covid + home test today Mode of Arrival: Ambulatory Source of Information: Parent(s) Limitations: No Limitations Time Seen by Provider: 10/05/22 20:12 Description of Symptoms (Recalled from Triage Doc. by RN): tested positve for covid, and at home test was positve for covid. Wants to be tested. HEENT Symptoms (Recalled from RN notes): Yes Resp Symptoms (Recalled from RN notes): No Skin Symptoms (Recalled from RN notes): No MS Symptoms (Recalled from RN notes): No Functional Status (Recalled from RN notes): n/a History of Present Illness Provider Complaint: Patient states that her tested positive for COVID earlier today and she took home test and was positive and wants to get tested Related Data Home Medications Medication Instructions Recorded Confirmed conjugated estrogens 0.3 mg tablet 0.625 mg PO DAILY HORMONE 04/15/19 10/05/22 REPLACEMENT hydroxychloroquine 200 mg tablet 200 mg PO DAILY LUPUS 04/15/19 10/05/22 leflunomide 20 mg tablet 20 mg PO DAILY LUPUS 04/15/19 10/05/22 levothyroxine 150 mcg tablet 150 mcg PO DAILY . 08/17/21 10/05/22 (Euthyrox) pantoprazole 40 mg tablet,delayed 40 mg PO DAILY . 08/17/21 10/05/22 release aspirin 81 mg tablet 81 mg PO DAILY . 09/15/22 10/05/22 metoprolol succinate 25 mg 25 mg PO DAILY . 10/05/22 10/05/22 tablet,extended release 24 hr Previous Rx's Medication Instructions Recorded amoxicillin 875 mg-potassium 1 tab PO Q12H #20 tabs 10/01/22 clavulanate 125 mg tablet Allergies Allergy/AdvReac Type Severity Reaction Status Date / Time No Known Allergies Allergy Verified 10/05/22 20:01 Worker's Comp Is this a Worker's Comp case?: No [facility] Disclaimer: The information contained in this section may have been updated after the patient was seen, as this information can be updated by other users. Medical History (Updated 10/05/22 @ 20:19 by Doris Mayo APRN) History of paroxysmal supraventricular t
[2022-10-05 20:30] VITALS: BP 140/90; PULSE 76; RESP 18; TEMP 36.7; O2SAT 98
== END 2022-10-05 20:30 | disposition home or self-care (01) ==
PROVIDERS: Emergency Provider Nurse Practitioner; PCP Family Medicine
DX: U07.1 COVID-19 (principal)
CPT/HCPCS: 99212; C9803; G0463; U0003; U0005

== ENCOUNTER 2023-09-21 14:32 | Outpatient (CLI) | payer BC, MEDICARE, SELFPAY | END 2023-09-21 23:59 | LOC: RT 14:34 | PROVIDERS: PCP Family Medicine; Visit Provider Internal Medicine | DX: R07.89 Other chest pain (principal); E07.9 Disorder of thyroid, unspecified; Z86.79 Personal history of other diseases of the circulatory system; Z98.890 Other specified postprocedural states | CPT/HCPCS: 93270 ==

== ENCOUNTER 2023-10-18 13:14 | Outpatient (POV) | payer BC, MEDICARE, SELFPAY | END 2023-10-18 23:59 | disposition home or self-care (01) | LOC: SC 13:15 | PROVIDERS: PCP Family Medicine; Visit Provider Dermatology | DX: Z00.00 Encounter for general adult medical examination without abnormal findings (principal) ==

== ENCOUNTER 2023-10-21 11:05 | Outpatient (CLI) | payer BC, SELFPAY ==
--- NOTE | 2023-10-21 11:06 | NM_ITS ---
APPROVED REPORT Exam: Nuclear Stress Test Indication: HTN, FM HX, C.P., SOB, TACKYCARDIA, PALPITATIONS Patient Location: Outpatient Stress Tech: Amanda Saeed [place] Tech:ALLIE Vines RT (R)(N)(M) Ht: 5 ft 8 in Wt: 167 lbs Bra Size: D HR: 76 bpm BP: 130/66 mmHg BSA: 1.89 m2 TID: 1.15 BMI: 25.3 History: HTN, FM HX, C.P., SOB, TACKYCARDIA, PALPITATIONS Procedure: Patient received 0.4 mg of intravenous Lexiscan, resting heart rate 76 bpm, resting blood pressure 130/66 mmHg, with Lexiscan maximum heart rate achieved was 106 bpm which is % of the maximum predicted heart rate and blood pressure was 139/62 mmHg. With Lexiscan, patient denied any complaint of chest pain. Cardiac Stress and Resting SPECT Images: Cardiac Stress and Resting SPECT images were obtained using technetium 99m Myoview 32.4 mCi stress and 10.92 mCi at rest. Resting and stress imaging in supine and prone positions demonstrate no evidence of fixed or reversible perfusion defects. Gated imaging demonstrates low normal global LV systolic function. LVEF is calculated at 51%. Conclusion: No evidence of fixed or reversible perfusion defects. Gated imaging demonstrates low normal global LV systolic function. LVEF is calculated at 51%. Electronically signed by : Harriett Craven MD 10/24/2023 16:38:05
[2023-10-21] MEDS: SODIUM CHLORIDE 0.9% 10ML SYR (RAD ONLY) 10 ML IV ×2 (11:20→12:45)
[2023-10-21] MEDS: REGADENOSON 0.4MG/5ML SYRINGE 0.400000000000000022 MG IV (12:45)
--- NOTE | 2023-10-21 12:50 | CA_ITS ---
APPROVED REPORT EXAM: Comprehensive 2D, Doppler, and color-flow Echocardiogram Coordinator Of Online Programs: Renetta Robles, RCS, RVS Ht: 5 ft 8 in Wt: 165lbs BSA: 1.88 BP: 120/75 mmHg Indications: CP, Lupus, SVT, Palpitations 2D Dimensions Aortic Root 2.99 cm LA Volume 45.70 mL Left Atrium 2.33 cm LA Volume Index [id number] mL/m2 (M/F) 16-34 RVID Base (AP4) 2.95 cm (M/F) 2.5-4.1 EF AP4 51.20 % LVOT 2.07 cm (M/F) 1.5-2.5 GL Strain -17.3 % M-Mode Dimensions RVDd 2.17 cm (0.9-2.6) LVDd 4.31 cm (3.5-5.7) Ao Diam 3.06 cm (2.0-3.7) LVDs 3.11 cm (3.5-5.7) IVSd 1.04 cm (0.6-1.1) PWd 0.94 cm (0.6-1.1) EF (Teich) 54.30% EPSs 0.30 cm FS 27.80% EDV (Teich) 83.50 mL TAPSE 1.69 (<1.7) ESV (Teich) 38.20 mL LV Diastology E Decel Time 233 (160-240 msec) E/A Ratio 1.44 MED E' 9.9 (>= 7 cm/sec) MED A' 9.90 cm/s E'/MED E' Ratio 8.48 (<= 14) LAT E' 13.7 (>= 10 cm/sec) LAT A' 7.30 cm/s E/LAT E' Ratio 6.13 (<= 14) Aortic Valve LVOT Max 93.0 (70-110 cm/s) SHANE Index 1.16 cm2/m2 LVOT VTI 18.83 cm AoV Peak Max. 128.0 (50-130 cm/s) AO Mean GR. 3.30 (<5 mmHg) AO VTI 29.0 (18-25 cm) SHANE (VTI) 2.18 (2.5-4.5 cm2) Mitral Valve MV E Max Max. 84.0 (40-130 cm/s) MV A Velocity 58.0 (40-130 cm/s) E/A Ratio 1.44 MV Decel. Time 233 (160-240 ms) Tricuspid Valve TR P. Velocity 239.00 cm/s Left Ventricle The left ventricle is normal size. The left ventricular systolic function is normal. The left ventricular ejection fraction is within the normal range. There is normal left ventricular wall thickness. There is normal LV segmental wall motion. The left ventricular diastolic function is normal. LVEF is 55%. Right Ventricle The right ventricle is normal size. The right ventricular systolic function is normal. Atria The left atrium size is normal. The right atrium size is normal. There is no Doppler evidence of interatrial shunt. Aortic Valve The aortic valve is mildly thickened. There is no aortic valvular stenosis. Mild aortic regurgitation. Mitral Valve The mitral valve is normal in structure. No evidence of mitral valve stenosis. Trace mitral regurgitation. Tricuspid Valve The tricuspid valve leaflets are thin and pliable. Mild tricuspid regurgitation. RVSP is 20-25 mmHg. Pulmonic Valve The pulmonary valve is normal in structure. Trace pulmonic regurgitation. Great Vessels The aortic root is normal in size. The ascending aorta is not well-visualized. IVC is normal in size and collapses >50% with inspiration. Pericardium There is no pericardial effusion. Other Information Study Quality: Fair Conclusion Normal biventricular systolic function. Mild AI, mild TR. RVSP 20-25 mmHg. Electronically signed by : Harriett Craven MD 10/25/2023 23:39:14
--- NOTE | 2023-10-21 13:00 | CA_ITS ---
APPROVED REPORT Exam: Pharmacologic Technologist: Amanda Jefferson, Ht: 5 ft 8 in Wt: 165 lbs BSA: 1.88 m2 HR: 74 bpm BP: 130/66 mmHg Rhythm: NSR Medical History Medications: Levothyroxine,,,,, Aspirin,,,,, Pantoprazole,,,,, Metoprolol Succinate ER,,,,, Hydroxychlorquine,,,,, Lefunomide,,,,, Stress Test Details Test: LEXISCAN Reason for pharmacologic stress test: physical limitation. HR Resting HR: 76 bpm Max Heart Rate (APMHR): 154 bpm Max HR Achieved: 112 bpm Target HR (85% APMHR): 131 bpm % of APMHR: 73 Recovery HR: 91 bpm BP Resting BP: 130.0/66.0 mmHg Max BP: 139.0/62.0 mmHg Recovery BP: 130.0/63.0 mmHg ECG Resting ECG: NSR, PVC Stress ECG: No significant ST changes Clinical Exercise duration: 03:17 min Highest Stage Achieved: Exercise capacity: 1.0 METs Stress ECG Conclusion Symptoms: SOA, head discomfort. No CP. Arrhythmias/Ectopy: None. ST-T Changes: No significant ST changess. Conclusion: Unremarkable Lexiscan stress. Myoview images reported separately. Test Summary REST . . . . . . . Resting REST 04:30 . . 76 . 130/ 66 . . Stage 1 01:00 . . 106 . . . . Stage 2 01:00 . . 105 . 139/ 62 . . Stage 3 01:00 . . 105 . 131/ 57 . . Stage 4 00:17 . . 103 . . . Stop exercise at 03:17 RECOVERY 01:00 . . 104 . 138/ 65 . . RECOVERY 02:00 . . 92 . 138/ 65 . . RECOVERY 03:00 . . 91 . 128/ 68 . . RECOVERY 04:00 . . 92 . 112/ 67 . . RECOVERY 04:28 . . 94 . 130/ 63 . . Electronically signed by : Harriett Craven MD 10/24/2023 16:36:51
[2023-10-21] MEDS: ISOTOPE MYOVIEW (PER STUDY) 1 DOSE IV (13:34)
== END 2023-10-21 23:59 ==
LOC: RAD 11:06
PROVIDERS: PCP Family Medicine; Visit Provider Internal Medicine
DX: R07.89 Other chest pain (principal); Z86.79 Personal history of other diseases of the circulatory system; Z98.890 Other specified postprocedural states; E07.9 Disorder of thyroid, unspecified
CPT/HCPCS: 78452; 93017; 93018; 93306; A9502; J2785

== ENCOUNTER 2023-10-31 07:57 | Outpatient (CLI) | payer BC, SELFPAY ==
--- NOTE | 2023-10-31 08:04 | MM_ITS ---
PROCEDURE INFORMATION: Exam: MG Bilateral Screening 3D Mammography Exam date and time: 10/31/2023 7:51 AM Age: 68 years old Clinical indication: Screening. No family history of breast cancer. TECHNIQUE: Imaging protocol: Bilateral Screening tomosynthesis and 2D mammography including computer-aided detection (CAD) when performed. COMPARISON: 1. MG MM DIG SCREENING MAMM BI W/CAD 02/24/2022 8:35 AM 2. MG DMSB DIG MAMM-SCREEN RACHID 08/19/2015 8:37 AM 3. MG DMSB DIG MAMM-SCREEN RACHID 07/10/2014 4:46 PM 4. MG DMSB DIGITAL MAMM-SCREEN BILATERAL 12/30/2011 3:11 PM FINDINGS: MAMMOGRAPHY: Breast composition: There are scattered areas of fibroglandular density. Mass: None. Architectural distortion: None. Calcifications: No suspicious calcifications. Asymmetric density: None. Skin thickening: None. Axillary adenopathy: None. IMPRESSION: No mammographic evidence of malignancy. Annual screening is recommended unless otherwise clinically indicated. ASSESSMENT: BI-RADS Category 1: Negative
== END 2023-10-31 23:59 ==
LOC: RAD 07:58
PROVIDERS: PCP Family Medicine; Visit Provider Family Medicine
DX: Z12.31 Encounter for screening mammogram for malignant neoplasm of breast (principal)
CPT/HCPCS: 77063; 77067

== ENCOUNTER 2025-02-14 07:44 | Outpatient (CLI) | payer BC, SELFPAY ==
--- OUTSIDE RECORDS SUMMARY | 2025-01-31 12:45 | XMS_ITS | Encounter Summary ---
Author Organization [facility] Address [address] [place] [id number] Phone [email or web address] Care Team Providers Care User Experience Researcher Name Role Phone Smi Logan MD Primary Care Provider [phone] Reason for Visit * Reason Comments Medication Therapy Management Medication refill Encounter Details Date Type Department Care Team (Latest Contact Info) Description 01/31/2025 12:45 PM EDT Office Visit [facility] [address] [place] [address] Tiffanie Sutton DO [address] [place] [address] Hypothyroidism (acquired); Gastroesophageal reflux disease without esophagitis Social History Tobacco Use Types Packs/Day Years Used Date Smoking Tobacco: Never Smokeless Tobacco: Never Alcohol Use Standard Drinks/Week Comments Defer 0 (1 standard drink = 0.6 oz pur e alcohol) Alcohol Use Answer Date Recorded Alcohol Use Status Defer 02/01/2023 Depression Answer Date Recorded PHQ Total Score 0 11/01/2024 Stress Answer Date Recorded Stress in your Life Not on file 06/28/2024 Dealing with Stress 3 06/28/2024 Comments Unknown Sex and Gender Information Value Date Recorded Sex Assigned at Female 10/29/2024 2:08 PM CDT Legal Sex Female 6:34 AM CDT Gender Identity Female 10/29/2024 2:08 PM CDT Sexual Orientation Not on file documented as of this encounter Last Filed Vital Signs Vital Sign Reading Time Taken Comments Blood Pressure 120/62 01/31/2025 12:36 PM EDT Pulse 64 01/31/2025 12:36 PM EDT Temperature 37.1 C (98.8 F) 01/31/2025 12:36 PM EDT Respiratory Rate - - Oxygen Saturation 96% 01/31/2025 12:36 PM EDT Inhaled Oxygen Concentration - - Weight 73.5 kg (162 lb) 01/31/2025 12:36 PM EDT Height 171.5 cm (5' 7.5 ) 01/31/2025 12:36 PM ED T Body Mass Index 25 01/31/2025 12:36 PM EDT documented in this encounter Progress Notes * Tiffanie Sutton, DO - 01/31/2025 12:45 PM EDT Allergies Chart Review Health Maintenance History Immunizations Screenings Search Synopsis This Visit Vital Signs Assessment & Plan Hypothyroidism (acquired) Orders: levothyroxine (SYNTHROID) 137 MCG tablet; Take 137 mcg by mouth 1 (one) time each day. TSH checked in October and was appropriate. Continue levothyroxine without changes. Gastroesophageal reflux disease without esophagitis Orders: pantoprazole (PROTONIX) 40 MG EC tablet; Take 1 tablet (40 mg total) by mouth 1 (one) time each daybefore breakfast. Do not crush, chew, or split. 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 She has tried stopping twice (cold turkey) and experienced reflux. She has never tried tapering. She was encouraged to discuss this with her PCP toprevent long-term complications of chronic PPI use. Taper was not initiated today since the patient will not be following up at this office. Follow-up: No follow up orders placed. Subjective Doris Merino is a 70 y.o. Reason(s) for visit on 01/31/2025: Medication Therapy Management Comments (if any): Medication refill HPI: Patient presents today for medication refill. Medication is working well without significant side effects. No other concerns at this time. This will likely be her last visit here as her is retiring and she will not have access to this office any longer. She is already established with PCP, rheumatology, OBGYN, and cardiology. She plans to discuss some chronic tailbone pain with her transfer engineer at her next visit. She declines any evaluation today. She has been taking pantoprazole for >10 years. REASON FOR VISIT - OTHER Pertinent negatives include no abdominal pain, arthralgias, chest pain, congestion, fever, joint swelling, myalgias or weakness. Review of Systems Constitutional: Negative for activity change, appetite change, fever and unexpected weight change. HENT: Negative for congestion and hearing loss. Eyes: Negative for photophobia, pain and visual disturbance. Respiratory: Negative for chest tightness, shortness of breath and wheezing. Cardiovascular: Negative for chest pain, palpitations and leg swelling. Gastrointestinal: Negative for abdominal pain, blood in stool, constipation and diarrhea. Musculoskeletal: Negative for arthralgias, joint swelling and myalgias. Skin: Negative for discoloration and dry skin. Neurological: Negative for tremors, syncope, speech difficulty, weakness and light-headedness. Endo: Negative for cold intolerance, heat intolerance and polyuria. Psychiatric/Behavioral: Negative for agitation, self-injury, sleep disturbance and suicidal ideas. The patient is not nervous/anxious. Allergy/Immuno: Negative for immunocompromised state. Genitourinary: Negative for difficulty urinating and hematuria. The following portions of the patient's chart were reviewed by me during this encounter and updatedas appropriate: Objective Visit Vitals BP 120/62 Pulse 64 Temp 98.8 ??F Ht 5' 7.5 Wt 162 lb SpO2 96% BMI 25.00 kg/m?? Smoking Status Never BSA 1.87 m?? Physical Exam Vitals and nursing note reviewed. Constitutional: General: She is not in acute distress. Appearance: She is not ill-appearing. HENT: Head: Normocephalic. Eyes: Extraocular Movements: Extraocular movements intact. Conjunctiva/sclera: Conjunctivae normal. Cardiovascular: Rate and Rhythm: Normal rate. Pulmonary: Effort: Pulmonary effort is normal. Musculoskeletal: General: No deformity. Skin: General: Skin is warm and dry. Coloration: Skin is not pale. Neurological: Mental Status: She is alert and oriented to person, place, and time. Gait: Gait is intact. Psychiatric: Mood and Affect: Mood and affect normal. Speech: Speech normal. Behavior: Behavior is cooperative. Tiffanie Sutton DO 01/31/2025 documented in this encounter Miscellaneous Notes * Assessment & Plan Note - Tiffanie Sutton DO - 01/31/2025 12:45 PM EDT Associated Problem(s): Hypothyroidism (acquired) Orders: levothyroxine (SYNTHROID) 137 MCG tablet; Take 137 mcg by mouth 1 (one) time each day. TSH checked in October and was appropriate. Continue levothyroxine without changes. * Assessment & Plan Note - Tiffanie Sutton DO - 01/31/2025 12:45 PM EDT Associated Problem(s): Gastroesophageal reflux disease without esophagitis Orders: pantoprazole (PROTONIX) 40 MG EC tablet; Take 1 tablet (40 mg total) by mouth 1 (one) time each daybefore breakfast. Do not crush, chew, or split. 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 She has tried stopping twice (cold turkey) and experienced reflux. She has never tried tapering. She was encouraged to discuss this with her PCP toprevent long-term complications of chronic PPI use. Taper was not initiated today since the patient will not be following up at this office. documented in this encounter Plan of Treatment Not on file documented as of this encounter Visit Diagnoses Diagnosis Hypothyroidism (acquired) Unspecified hypothyroidism Gastroesophageal reflux disease without esophagitis Esophageal reflux documented in this encounter Care Teams User Experience Researcher Relationship Specialty Start Date End Date Sim Logan MD [address] [facility] [address] [place] [address] PCP - General Internal Medicine 07/22/23 documented as of this encounter
--- OUTSIDE RECORDS SUMMARY | 2025-02-14 07:47 | XMS_ITS | Clinical Summary ---
Author Organization [facility] Address [address] [place] [address] Phone [email or web address] Care Team Providers Care Peanut Separator Name Role Phone Sim Logan MD Primary Care Provider [phone] Allergies No known active allergies Medications aspirin (ST FANTA) 81 MG EC tablet 81 mg. Active cholecalciferol (VITAMIN D-3) 50 MCG (1999 UT) capsule Active hydroxychloroqui ne (Plaquenil) 200 MG tablet Active leflunomide (Arava) 20 MG tablet Active metoprolol tartrate (LOPRESSOR) 50 MG tabletIndication s:Paroxysmal SVT (supraventricula r tachycardia) (CMS/HCC) Take 0.5 tablets (25 mg total) by mouth 1 (one) time each day. 90 tablet 4 Active amLODIPine (NORVASC) 2.5 MG tablet Take 2.5 mg by mouth 1 (one) time each day. 5 Active levothyroxine (SYNTHROID) 137 MCG tabletIndication s:Hypothyroidism (acquired) Take 137 mcg by mouth 1 (one) time each day. 90 tablet 5 02/01/20 26 Active pantoprazole (PROTONIX) 40 MG EC tabletIndication s:Gastroesophage al reflux disease without esophagitis Take 1 tablet (40 mg total) by mouth 1 (one) time each day before breakfast. Do not crush, chew, or split. 90 tablet 5 02/01/20 26 Active levothyroxine (SYNTHROID) 137 MCG tabletIndication s:Hypothyroidism (acquired) Take 137 mcg by mouth 1 (one) time each day. 90 tablet 5 02/01/20 25 Discontinu ed(Reorder ) pantoprazole (PROTONIX) 40 MG EC tabletIndication s:Gastroesophage al reflux disease without esophagitis Take 1 tablet (40 mg total) by mouth 1 (one) time each day before breakfast. Do not crush, chew, or split. 90 tablet 5 02/01/20 25 Discontinu ed(Reorder ) Active Problems Problem Noted Date Diagnosed Date History of paroxysmal supraventricular tachycard ia 10/19/2023 Fracture dislocation of joint 10/19/2023 History of cardiac radiofrequency ablation (RFA) 02/01/2023 Gastroesophageal reflux disease without esophagi tis 02/01/2023 Assessment & Plan (01/31/2025 1:11 PM EDT): Orders: pantoprazole (PROTONIX) 40 MG EC tablet; Take 1 tablet (40 mg total) by mouth 1 (one) time each day before breakfast. Do not crush, chew, or split. Discussed the potential risks of chcf PPI use. She has tried stopping twice (cold turkey) and experienced reflux. She has never tried tapering. She was encouraged to discuss this with her PCP to prevent fci complications of chronic PPI use. Taper was not initiated today since the patient will not be following up at this office. Assessment & Plan (11/01/2024 1:11 PM EDT): Orders: pantoprazole (PROTONIX) 40 MG EC tablet; Take 1 tablet (40 mg total) by mouth 1 (one) time each day before breakfast. Do not crush, chew, or split. Assessment & Plan (07/30/2024 11:56 AM EST): Orders: pantoprazole (PROTONIX) 40 MG EC tablet; Take 1 tablet (40 mg total) by mouth 1 (one) time each day before breakfast. Do not crush, chew, or split. Medications refilled. Paresthesia of feet could be due to Raynaud's. It is also possible that vitamin B12 deficiency is causing the numbess and tingling. Labs will be checked today to further evaluate. She will be contacted with lab results. She voiced understanding and agreed. She will continue seeing rheumatology as scheduled. History of hysterectomy with bilateral oophorect diana 02/01/2023 Hypothyroidism (acquired) 09/02/2021 Assessment & Plan (01/31/2025 1:11 PM EDT): Orders: levothyroxine (SYNTHROID) 137 MCG tablet; Take 137 mcg by mouth 1 (one) time each day. TSH checked in October and was appropriate. Continue levothyroxine without changes. Assessment & Plan (11/01/2024 1:11 PM EDT): Orders: levothyroxine (SYNTHROID) 137 MCG tablet; Take 137 mcg by mouth 1 (one) time each day. Assessment & Plan (07/30/2024 11:56 AM EST): Orders: levothyroxine (SYNTHROID) 137 MCG tablet; Take 137 mcg by mouth 1 (one) time each day. Paroxysmal SVT (supraventricular tachycardia) Assessment & Plan (11/01/2024 1:11 PM EDT): Assessment & Plan (07/30/2024 11:56 AM EST): Orders: metoprolol tartrate (LOPRESSOR) 50 MG tablet; Take 0.5 tablets (25 mg total) by mouth 1 (one) time each day. Seropositive rheumatoid arthritis 03/29/2018 Greater trochanteric bursitis 03/29/2018 Lupus (systemic lupus erythematosus) 06/22/1993 Encounters Date Type Department Care Team Description 02/13/2025 Orders Only [facility] [address] [facility] [address] [place] [address] Angela Cota, JULIET Encounter for screening mammogram for malignant neoplasm of breast 01/31/2025 12:45 PM EDT Office Visit [facility] [address] [facility] [address] [place] [address] Tiffanie Sutton DO Hypothyroidism (acquired); Gastroesophageal reflux disease without esophagitis from Last 3 Months Immunizations Immunization Administration Dates Next Due Influenza (Afluria Fluzone) quad (CVX-158) 06/10/2020 Influenza single-dose SYRING E (Afluria, Fluarix, Fluzone, Flulaval) trivalent (CVX-140) 05/05/2017,05/09/2016 Influenza, (Afluria Fluarix Flulaval Fluzone) quad, PF (CVX-150) 05/06/2022,05/13/2021,04/24/2020,2018,05/18/2018 Influenza, unspecified (CVX-88) 05/12/2017 Social History Tobacco Use Types Packs/Day Years Used Date Smoking Tobacco: Never Smokeless Tobacco: Never Tobacco Cessation:Counseling Given: Not Answered Alcohol Use Standard Drinks/Week Comments Defer 0 [...] PM CDT Sexual Orientation Not on file Last Filed Vital Signs Vital Sign Reading Time Taken Comments Blood Pressure 120/62 01/31/2025 12:36 PM EDT Pulse 64 01/31/2025 12:36 PM EDT Temperature 37.1 C (98.8 F) 01/31/2025 12:36 PM EDT Respiratory Rate 18 01/30/2024 8:56 AM EDT Oxygen Saturation 96% 01/31/2025 12:36 PM EDT Inhaled Oxygen Concentration - - Weight 73.5 kg (162 lb) 01/31/2025 12:36 PM EDT Height 171.5 cm (5' 7.5 ) 01/31/2025 12:36 PM ED T Body Mass Index 25 01/31/2025 12:36 PM EDT Plan of Treatment Health Maintenance Due Date Last Done Comments Dental Cleaning/Exam 1955 Hepatitis C Screening 1955 Annual Preventive Exam 1975 Hep B Infection Screening - Triple Screen 1975 Tetanus Diphtheria and Pertussis Immunization (1 - Tdap) 01/11/1976 Osteoporosis screening DEXA 2007 Pneumococcal: 65+ Years (1 of 1 - PCV) 2007 Zoster Immunization (1 of 2) 2007 Covid-19 Immunization (4 - season) 2024 05/14/2021, 11/12/2020, 10/15/2020 Influenza Immunization (Season Ended) 2025 05/06/2022, 05/13/2021, 06/10/2020, Additional history exists Breast Cancer Screening 02/13/2027 02/13/2025 Colorectal Cancer Screening 05/01/2034 05/01/2024 HIB Immunization Aged Out No longer e ligible based on patient's age to complete this topic HPV Immunization Aged Out No longer e ligible based on patient's age to complete this topic Hepatitis A Immunization Aged Out No longer eligible based on patient's age to complete this topic Hepatitis B Immunization Aged Out No longer eligible based on patient's age to complete this topic Polio Immunization Aged Out No longer eligible based on patient's age to complete this topic Procedures Procedure Name Priority Date/Time Associated Diagnosis Comments MAMMOGRAM SCREENING DIGITAL BREAST TOMOSYNTHESIS 3D BILATERAL CPT 91673 Routine 02/13/2025 12:06 PM EDT Encounter for screening mammogram for malignant neoplasm of breast COLOGUARD Routine 05/01/2024 8:00 AM EDT Colon cancer screening from Last 3 Months or Most Recently Relevant to Health Maintenance Results * Mammogram Breast Screening Tomosynthesis Bilateral [id number] (02/13/2025 12:06 PM EDT) Anatomical Region Laterality Modality Breast Bilateral Mammography us Tiffanie [place] DO IMG BI PROCEDURES Final Resul t * Cologuard (50355) (05/01/2024 8:00 AM EDT) Cologuard Result Negative Negative [facility] (CLIA #:[id number]) Comment: NEGATIVE TEST RESULT. A negative Cologuard result indicates a low likelihood that a colorectal cancer (CRC) or advanced adenoma (adenomatous polyps with more advanced pre-malignant features) is present. The chance that a person with a negative Cologuard test has a colorectal cancer is less than 1 in 1500 (negative predictive value >99.9%) or has an advanced adenoma is less than 5.3% (negative predictive value 94.7%). These data are based on a prospective cross-sectional study of 10,000 individuals at average risk for colorectal cancer who were screened with both Cologuard and colonoscopy. (Lacho Schroeder al, N Engl J Med 2014;370(14):0692-1687) The normal value (reference range) for this assay is negative. COLOGUARD RE-SCREENING RECOMMENDATION: Periodic colorectal cancer screening is an important part of preventive healthcare for asymptomatic individuals at average risk for colorectal cancer. Following a negative Cologuard result, the [place] [employer] Society and U.S. Multi-Society Task Force screening guidelines recommend a Cologuard re-screening interval of 3 years. References: [place] [employer] Guideline for Colorectal Cancer Screening: https://www.cancer.org/cancer/wygmq-oiylov-zpejpt/ruybopqfo-fnvvwmsgh-iljnslf/ac s-rec ommendations.html.; Lyle LIEBERMAN, Allen MARTINEZ, Veronica MijaresK, Colorectal Cancer Screening: Recommendations for Physicians and Patients from the U.S. Multi-Society Task Force on Colorectal Cancer Screening , Am J Gastroenterology 2017; 112:9905-3938. TEST DESCRIPTION: Composite algorithmic analysis of stool DNA-biomarkers with hemoglobin immunoassay. Quantitative values of individual biomarkers are not reportable and are not associated with individual biomarker result reference ranges. Cologuard is intended for colorectal cancer screening of adults of either sex, 45 years or older, who are at average-risk for colorectal cancer (CRC). Cologuard has been approved for use by the U.S. FDA. The performance of Cologuard was established in a cross sectional study of average-risk adults aged 50-84. Cologuard performance in patients ages 45 to 49 years was estimated by sub-group analysis of near-age groups. Colonoscopies performed for a positive result may find as the most clinically significant lesion: colorectal cancer [4.0%], advanced adenoma (including sessile serrated polyps greater than or equal to 1cm diameter) [20%] or non- advanced adenoma [31%]; or no colorectal neoplasia [45%]. These estimates are derived from a prospective cross-sectional screening study of 10,000 individuals at average risk for colorectal cancer who were screened with both Cologuard and colonoscopy. (Lacho Schroeder al, N Engl J Med 2014;370(14):6550-9546.) Cologuard may produce a false negative or false positive result (no colorectal cancer or precancerous polyp present at colonoscopy follow up). A negative Cologuard test result does not guarantee the absence of CRC or advanced adenoma (pre-cancer). The current Cologuard screening interval is every 3 years. ([place] [employer] and U.S. Multi-Society Task Force). Cologuard performance data in a 10,000 patient pivotal study using colonoscopy as the reference method can be accessed at the following location: www.[employer]results. Additional description of the Cologuard test process, warnings and precautions can be found at [email or web address]. Stool 05/01/2024 8:00 AM EDT 05/04/2024 9:40 AM EDT Tiffanie [place] DO LAB BODY FLUIDS AND STOOLS OR DERABLES Final Result [facility] [address] [place] [address] [facility] (CLIA #:[id number]) [address] [place] [address] from Last 3 Months or Most Recently Relevant to Health Maintenance Insurance ANTHEM NO COPAY NB Care Teams Peanut Separator Relationship Specialty Start Date End Date Sim Logan MD [address] [facility] [address] [place] [address] PCP - General Internal Medicine 07/22/23
--- OUTSIDE RECORDS SUMMARY | 2025-02-14 07:47 | XMS_ITS | Data Portability ---
Author Organization [facility] LEFTY DobsonS [place] Address [address] [place] [address] Care Team Providers Care Linux Solaris Administrator Name Role Phone LOBITO RANDHAWA Primary Care Provider Assessment No assessment recorded. Plan of Treatment Reminders Order Date Submit Date Provider Last Modified By Organization Details Last Modified Time Details Appointments RHEUM RECHECK 2024 09:45A M GAMALIEL RODGERS MD Not available Not available Not available Lab CMP, serum or plasma 2024 025 [facility], [address] [place] [address], [id number], 12/26/2024 10:40:33 CBC w/ auto diff 2024 025 [facility], [address] [place] [address], [id number], 12/26/2024 10:57:19 urinalys is, complete 2024 025 [facility], [address] [place] [address], [address], 12/26/2024 12:48:24 ESR (erythro cyte sediment ation rate), blood 2024 025 [facility], [address] [place] [address], [address], 12/26/2024 12:39:44 C3 (complem ent), serum or plasma 2024 025 [facility], [address] [place] [address], [address], 12/27/2024 18:21:52 C4 (complem ent), serum or plasma 2024 025 [facility], [address] [place] [address], [address], 12/27/2024 18:21:54 dsDNA Ab, serum 2024 025 [facility], [address] [place] [address], [address], 12/31/2024 20:01:13 vitamin D, 25-hydro xy, total, serum 2024 025 [facility], [address] [place] [address], [address], 12/26/2024 11:35:32 CK (creatin e kinase), total, serum 2024 025 [facility], [address] [place] [address], [address], 12/26/2024 10:40:28 vitamin B12, serum 2024 025 [facility], [address] [place] [address], [address], 12/26/2024 11:35:30 folate, serum 2024 025 [facility], [address] [place] [address], [address], 12/26/2024 11:35:28 TSH, serum, reflex free T4 2024 025 [facility], [address] [place] [address], [address], 12/26/2024 10:40:36 ferritin , serum or plasma 2024 025 [facility], [address] [place] [address], [address], 12/26/2024 10:40:31 CMP, serum or plasma 2024 025 [facility], [address] [place] [address], [address], 09/25/2024 11:21:09 CBC w/ auto diff 2024 025 [facility], [address] [place] [address], [address], 09/25/2024 10:50:33 urinalys is, complete 2024 025 [facility], [address] [place] [address], [address], 09/25/2024 11:15:52 ESR (erythro cyte sediment ation rate), blood 2024 025 [facility], [address] [place] [address], [address], 09/25/2024 11:47:03 C3 (complem ent), serum or plasma 2024 025 [facility], [address] [place] [address], [address], 09/26/2024 20:04:18 C4 (complem ent), serum or plasma 2024 025 [facility], [address] [place] [address], [address], 09/26/2024 20:04:16 dsDNA Ab, serum [address] [place] [address] Laboratory, [address] [place] [address], [address], 09/30/2024 06:56:17 Referral None recorded . Procedures None recorded . Surgeries None recorded . Imaging XR, lumbosac ral spine, 2 or 3 view 2024 025 [facility], [address] [facility], [place], [address], 09/25/2024 10:34:53 Medication Orders hydroxyc hloroqui ne 200 mg tablet 2024 025 [facility], [address], [address], 12/26/2024 09:27:33 leflunom huber 20 mg tablet 2024 025 [facility], [address], [address], 12/26/2024 09:27:32 amlodipi ne 5 mg tablet 2024 025 [facility], [address], [address], 12/26/2024 09:27:32 amitript yline 10 mg tablet 2024 025 [facility], [address], [address], 12/26/2024 09:27:33 hydroxyc hloroqui ne 200 mg tablet 2024 025 [facility], [address], [address], 09/25/2024 09:47:15 leflunom huber 20 mg tablet 2024 025 [facility], [address], [address], 09/25/2024 09:47:14 predniso ne 5 mg tablet 2024 025 [facility], [address], [address], 09/25/2024 09:47:26 amlodipi ne 2.5 mg tablet 2024 025 [facility], [address], [address], 09/25/2024 09:47:16 Patient TargetsNo targets recorded. Patient Instructions Encounter Date Encounter Id Patient Instructions Last Modified By Organization Details Last Modified Time 11/17/2020 [id number] hearing loss: ca re instructions [email or web address] Not available 11/17/2020 15:53:52 hearing loss: ca re instructions [email or web address] Not available 11/17/2020 15:53:52 11/17/2020 [id number] hearing loss: ca re instructions [email or web address] Not available 11/24/2020 13:44:35 hearing loss: ca re instructions [email or web address] Not available 11/24/2020 13:44:47 11/17/2020 [id number] hearing loss: ca re instructions [email or web address] Not available 11/17/2020 16:43:08 hearing loss: ca re instructions [email or web address] Not available 11/17/2020 16:43:08 1. Audiogram performed in office 2. Use a fan, noise machine, ambient music, etc. to create background white noise for tinnitus masking 3. Discussed benefit of hearing amplification and protection 4. MRI Temporal bone-will call pt with results 5. F/U 1 year with repeat audio or sooner if concerns arise (pending MRI results) [email or web address] Not available 11/17/2020 15:48:54 65 yo F seen for bilateral tinnitus and hearing loss. 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 Will get MRI to r/o retrocochlear pathology. 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 Recheck hearing in 12 mn. Call with MRI results. [email or web address] Not available 11/17/2020 17:58:55 09/25/2024 [id number] medical record request* - Please send the last [address] Rodgers on this patient in [facility]. Please send last DEXA. Not available 10/08/2024 08:12:35 I spent >40 minutes caring for the patient today with direct counseling, coordinating care, extensive review of outside records, medication management, and documentation. [email or web address] Not available 09/25/2024 09:41:31 Reason for Referral None Reported. Results Created Date Observation Date Name Description Value Unit Range Abnormal Flag Note LastModifiedBy Organization Detail LastModifiedTime 11/28/19 21 11/27/2020 creat inine , serum or plasm a creatinine 0.80 mg/dL 0.50-0 .90 normal PLEAS E NOTE: NEW KIERA L RANGE Not Available [facility] [address] [place] [address], [address], 11/27/2020 15:36:21 09/25/19 25 09/25/2024 COMPL ETE BLOOD COUNT white blood cells 6.7 10*3/ uL 3.8-10 .8 normal Not Available [facility] [address] [place] [address], [address], 09/25/2024 10:50:33 09/25/19 25 09/25/2024 COMPL ETE BLOOD COUNT red blood cells 3.99 10*6/ uL 3.80-5 .20 normal Not Available [facility] [address] [place] [address], [address], 09/25/2024 10:50:33 09/25/19 25 09/25/2024 COMPL ETE BLOOD COUNT hemoglobin 12.5 g/dL 12.0-1 6.0 normal Not Available [facility] [address] [place] [address], [address], 09/25/2024 10:50:33 09/25/19 25 09/25/2024 COMPL ETE BLOOD COUNT hematocrit 37.5 % 35.0-4 7.0 normal Not Available [facility] [address] [place] [address], [address], 09/25/2024 10:50:33 09/25/19 25 09/25/2024 COMPL ETE BLOOD COUNT MCV 94 fL 80-100 normal Not Available [facility] [address] [place] [address], [address], 09/25/2024 10:50:33 09/25/19 25 09/25/2024 COMPL ETE BLOOD COUNT MCH 31 pg 26-35 normal Not Available [facility] [address] [place] [address], [address], 09/25/2024 10:50:33 09/25/19 25 09/25/2024 COMPL ETE BLOOD COUNT MCHC 33 g/dL 32-36 normal Not Available [facility] [address] [place] [address], [address], 09/25/2024 10:50:33 09/25/19 25 09/25/2024 COMPL ETE BLOOD COUNT RDW 13.4 % 11.0-1 5.0 normal Not Available [facility] [address] [place] [address], [address], 09/25/2024 10:50:33 09/25/19 25 09/25/2024 COMPL ETE BLOOD COUNT MPV 7.4 fL 6.2-10 .5 normal Not Available [facility] [address] [place] [address], [address], 09/25/2024 10:50:33 09/25/19 25 09/25/2024 COMPL ETE BLOOD COUNT platelet count 234 10*3/ uL 150-40 0 normal Not Available [facility] [address] [place] [address], [address], 09/25/2024 10:50:33 09/25/19 25 09/25/2024 COMPL ETE BLOOD COUNT neutrophil,a bsolute 4.0 10*3/ uL 1.6-8. 4 normal Not Available [facility] [address] [place] [address], [address], 09/25/2024 10:50:33 09/25/19 25 09/25/2024 COMPL ETE BLOOD COUNT lymphocyte,a bsolute 1.5 10*3/ uL 0.4-5. 1 normal Not Available [facility] [address] [place] [address], [address], 09/25/2024 10:50:33 09/25/19 25 09/25/2024 COMPL ETE BLOOD COUNT monocyte,abs olute 0.8 10*3/ uL 0.0-1. 2 normal Not Available [facility] [address] [place] [address], [address], 09/25/2024 10:50:33 09/25/19 25 09/25/2024 COMPL ETE BLOOD COUNT eosinophil,a bsolute 0.3 10*3/ uL 0.0-0. 8 normal Not Available [facility] [address] [place] [address], [address], 09/25/2024 10:50:33 09/25/19 25 09/25/2024 COMPL ETE BLOOD COUNT basophil,abs olute 0.0 10*3/ uL 0.0-0. 3 normal Not Available [facility] [address] [place] [address], [address], 09/25/2024 10:50:33 09/25/19 25 09/25/2024 COMPL ETE BLOOD COUNT % neutrophils 59.8 % 42.0-7 8.0 normal Not Available [facility] [address] [place] [address], [address], 09/25/2024 10:50:33 09/25/19 25 09/25/2024 COMPL ETE BLOOD COUNT % lymphocytes 22.7 % 11.0-4 7.0 normal Not Available [facility] [address] [place] [address], [address], 09/25/2024 10:50:33 09/25/19 25 09/25/2024 COMPL ETE BLOOD COUNT % monocytes 12.1 % 0.0-11 .0 high Not Available [facility] [address] [place] [address], [address], 09/25/2024 10:50:33 09/25/19 25 09/25/2024 COMPL ETE BLOOD COUNT % eosinophils 4.8 % 0.0-7. 0 normal Not Available [facility] [address] [place] [address], [address], 09/25/2024 10:50:33 09/25/19 25 09/25/2024 COMPL ETE BLOOD COUNT % basophils 0.6 % 0.0-3. 0 normal Not Available [facility] [address] [place] [address], [address], 09/25/2024 10:50:33 09/25/19 25 09/25/2024 COMPL ETE BLOOD COUNT nucleated red cells 0.0 % 0.0-0. 9 normal Not Available [facility] [address] [place] [address], [address], 09/25/2024 10:50:33 09/25/19 25 09/25/2024 COMPL ETE BLOOD COUNT nucleated RBCs, absolute 0.00 10*3/ uL not estab. normal Not Available [facility] [address] [place] [address], [address], 09/25/2024 10:50:33 09/25/19 25 09/25/2024 URINA LYSIS color Pale yellow normal Not Available [facility] [address] [place] [address], [address], 09/25/2024 11:15:52 09/25/19 25 09/25/2024 URINA LYSIS appearance Clear normal Not Available [facility] [address] [place] [address], [address], 09/25/2024 11:15:52 09/25/19 25 09/25/2024 URINA LYSIS glucose Normal mg/dL normal normal Not Available [facility] [address] [place] [address], [address], 09/25/2024 11:15:52 09/25/19 25 09/25/2024 URINA LYSIS bilirubin Negati ve mg/dL negati ve normal Not Available [facility] [address] [place] [address], [address], 09/25/2024 11:15:52 09/25/19 25 09/25/2024 URINA LYSIS ketone Negati ve mg/dL negati ve normal Not Available [facility] [address] [place] [address], [address], 09/25/2024 11:15:52 09/25/19 25 09/25/2024 URINA LYSIS specific gravity 1.004 1.003- 1.035 normal Not Available [facility] [address] [place] [address], [address], 09/25/2024 11:15:52 09/25/19 25 09/25/2024 URINA LYSIS blood Negati ve /uL negati ve normal Not Available [facility] [address] [place] [address], [address], 09/25/2024 11:15:52 09/25/19 25 09/25/2024 URINA LYSIS pH 6 5.0 - 8.0 normal Not Available [facility] [address] [place] [address], [address], 09/25/2024 11:15:52 09/25/19 25 09/25/2024 URINA LYSIS protein Negati ve mg/dL negati ve normal Not Available [facility] [address] [place] [address], [address], 09/25/2024 11:15:52 09/25/19 25 09/25/2024 URINA LYSIS urobilinogen Normal mg/dL normal normal Not Available [facility] [address] [place] [address], [address], 09/25/2024 11:15:52 09/25/19 25 09/25/2024 URINA LYSIS nitrite Negati ve negati ve normal Not Available [facility] [address] [place] [address], [address], 09/25/2024 11:15:52 09/25/19 25 09/25/2024 URINA LYSIS leukocyte esterase Negati ve /uL negati ve normal Not Available [facility] [address] [place] [address], [address], 09/25/2024 11:15:52 09/25/19 25 09/25/2024 URINA LYSIS WBC, urine Rare 0-5/hp f normal Not Available [facility] [address] [place] [address], [address], 09/25/2024 11:15:52 09/25/19 25 09/25/2024 URINA LYSIS bacteria Trace /hpf none seen abnormal Not Available [facility] [address] [place] [address], [address], 09/25/2024 11:15:52 09/25/19 25 09/25/2024 COMP. METAB OLIC PANEL glucose 92 mg/dL 74-100 normal Not Available [facility] [address] [place] [address], [address], 09/25/2024 11:21:08 09/25/19 25 09/25/2024 COMP. METAB OLIC PANEL blood urea nitrogen 10 mg/dL 6-20 normal Not Available [facility] [address] [place] [address], [address], 09/25/2024 11:21:08 09/25/19 25 09/25/2024 COMP. METAB OLIC PANEL creatinine 0.75 mg/dL 0.50-0 .95 normal Not Available [facility] [address] [place] [address], [address], 09/25/2024 11:21:08 09/25/19 25 09/25/2024 COMP. METAB OLIC PANEL BUN/creatini ne ratio 13 (calc ) 10-20 normal Not Available [facility] [address] [place] [address], [address], 09/25/2024 11:21:08 02/04/20 25 09/25/2024 COMP. METAB OLIC PANEL sodium 145 mmol/ L 136-14 5 normal Not Available [facility] [address] [place] [address], [address], 09/25/2024 11:21:08 09/25/19 25 09/25/2024 COMP. METAB OLIC PANEL potassium 3.8 mmol/ L 3.4-5. 0 normal Not Available [facility] [address] [place] [address], [address], 09/25/2024 11:21:08 09/25/19 25 09/25/2024 COMP. METAB OLIC PANEL chloride 105 mmol/ L 98-107 normal Not Available [facility] [address] [place] [address], [address], 09/25/2024 11:21:08 09/25/19 25 09/25/2024 COMP. METAB OLIC PANEL carbon dioxide 29 mmol/ L 22-31 normal Not Available [facility] [address] [place] [address], [address], 09/25/2024 11:21:08 09/25/19 25 09/25/2024 COMP. METAB OLIC PANEL anion gap 11 (calc ) 7-25 normal Not Available [facility] [address] [place] [address], [address], 09/25/2024 11:21:08 09/25/19 25 09/25/2024 COMP. METAB OLIC PANEL calcium 9.4 mg/dL 8.6-10 .2 normal Not Available [facility] [address] [place] [address], [address], 09/25/2024 11:21:08 09/25/19 25 09/25/2024 COMP. METAB OLIC PANEL total protein 7.4 g/dL 6.4-8. 3 normal Not Available [facility] [address] [place] [address], [address], 09/25/2024 11:21:08 09/25/19 25 09/25/2024 COMP. METAB OLIC PANEL albumin 4.2 g/dL 3.5-5. 2 normal Not Available [facility] [address] [place] [address], [address], 09/25/2024 11:21:08 09/25/19 25 09/25/2024 COMP. METAB OLIC PANEL globulin 3.2 1.5-4. 5 normal Not Available [facility] [address] [place] [address], [address], 09/25/2024 11:21:08 09/25/19 25 09/25/2024 COMP. METAB OLIC PANEL albumin/glob ulin ratio 1.3 (calc ) 1.1-2. 5 normal Not Available [facility] [address] [place] [address], [address], 09/25/2024 11:21:08 09/25/19 25 09/25/2024 COMP. METAB OLIC PANEL bilirubin, total 0.3 mg/dL 0.1-1. 2 normal Not Available [facility] [address] [place] [address], [address], 09/25/2024 11:21:08 09/25/19 25 09/25/2024 COMP. METAB OLIC PANEL alkaline phosphatase 128 U/L 30-121 high Not Available [facility] [address] [place] [address], [address], 09/25/2024 11:21:08 09/25/19 25 09/25/2024 COMP. METAB OLIC PANEL AST 25 U/L 0-32 normal Not Available [facility] [address] [place] [address], [address], 09/25/2024 11:21:08 09/25/19 25 09/25/2024 COMP. METAB OLIC PANEL ALT 30 U/L 0-33 normal Not Available [facility] [address] [place] [address], [address], 09/25/2024 11:21:08 09/25/19 25 09/25/2024 COMP. METAB OLIC PANEL GFR 87 >= 60 normal NOT E New calcu latio n for GFR (CKD- EPI 2020) is formu lated witho ut race adjus tment facto rs at the recom menda tion of the [employer] [facility] [employer] [facility] and [facility] Nephr ology . This calcu latio n has not been valid ated in pregn ant women . For pedia tric patie nts refer to https ://ned w.roselia zazueta.o rg/pr ofess ional s/KDO QI/gf r_cal culat orPed Not Available [facility] [address] [place] [address], [address], 09/25/2024 11:21:08 09/25/19 25 09/25/2024 ESR, AUTOM ATED ESR, automated 13 mm 0-29 normal Not Available [facility] [address] [place] [address], [address], 09/25/2024 11:47:03 09/25/19 25 09/26/2024 C4 C4 19 mg/dL 15-57 normal Not Available [facility] [address] [place] [address], [address], 09/26/2024 20:04:16 09/25/19 25 09/26/2024 C3 C3 131 mg/dL 83-193 normal Not Available [facility] [address] [place] [address], [address], 09/26/2024 20:04:18 09/25/19 25 09/30/2024 ANTI DNA (DS) AB, REFLE X TITER DNA (ds) Ab NEGATI VE negati ve normal Not Available [facility] [address] [place] [address], [address], 09/30/2024 06:56:17 12/27/19 25 12/26/2024 CREAT INE KINAS E creatine kinase 100 U/L 0-169 normal Not Available [facility] [address] [place] [address], [address], 12/26/2024 10:40:28 12/27/19 25 12/26/2024 SONDRA TIN ferritin 61 NG/mL 13-157 normal Not Available [facility] [address] [place] [address], [address], 12/26/2024 10:40:31 12/27/19 25 12/26/2024 COMP. METAB OLIC PANEL glucose 87 mg/dL 74-100 normal Not Available [facility] [address] [place] [address], [address], 12/26/2024 10:40:33 12/27/19 25 12/26/2024 COMP. METAB OLIC PANEL blood urea nitrogen 14 mg/dL 6-20 normal Not Available [facility] [address] [place] [address], [address], 12/26/2024 10:40:33 12/27/19 25 12/26/2024 COMP. METAB OLIC PANEL creatinine 0.85 mg/dL 0.50-0 .95 normal Not Available [facility] [address] [place] [address], [address], 12/26/2024 10:40:33 12/27/19 25 12/26/2024 COMP. METAB OLIC PANEL BUN/creatini ne ratio 16 (calc ) 10-20 normal Not Available [facility] [address] [place] [address], [address], 12/26/2024 10:40:33 12/27/19 25 12/26/2024 COMP. METAB OLIC PANEL sodium 143 mmol/ L 136-14 5 normal Not Available [facility] [address] [place] [address], [address], 12/26/2024 10:40:33 12/27/19 25 12/26/2024 COMP. METAB OLIC PANEL potassium 3.9 mmol/ L 3.4-5. 0 normal Not Available [facility] [address] [place] [address], [address], 12/26/2024 10:40:33 12/27/19 25 12/26/2024 COMP. METAB OLIC PANEL chloride 103 mmol/ L 98-107 normal Not Available [facility] [address] [place] [address], [address], 12/26/2024 10:40:33 12/27/19 25 12/26/2024 COMP. METAB OLIC PANEL carbon dioxide 27 mmol/ L 22-31 normal Not Available [facility] [address] [place] [address], [address], 12/26/2024 10:40:33 12/27/19 25 12/26/2024 COMP. METAB OLIC PANEL anion gap 13 (calc ) 7-25 normal Not Available [facility] [address] [place] [address], [address], 12/26/2024 10:40:33 12/27/19 25 12/26/2024 COMP. METAB OLIC PANEL calcium 9.6 mg/dL 8.6-10 .2 normal Not Available [facility] [address] [place] [address], [address], 12/26/2024 10:40:33 12/27/19 25 12/26/2024 COMP. METAB OLIC PANEL total protein 7.4 g/dL 6.4-8. 3 normal Not Available [facility] [address] [place] [address], [address], 12/26/2024 10:40:33 12/27/19 25 12/26/2024 COMP. METAB OLIC PANEL albumin 4.3 g/dL 3.5-5. 2 normal Not Available [facility] [address] [place] [address], [address], 12/26/2024 10:40:33 12/27/19 25 12/26/2024 COMP. METAB OLIC PANEL globulin 3.1 1.5-4. 5 normal Not Available [facility] [address] [place] [address], [address], 12/26/2024 10:40:33 12/27/19 25 12/26/2024 COMP. METAB OLIC PANEL albumin/glob ulin ratio 1.4 (calc ) 1.1-2. 5 normal Not Available [facility] [address] [place] [address], [address], 12/26/2024 10:40:33 12/27/19 25 12/26/2024 COMP. METAB OLIC PANEL bilirubin, total 0.3 mg/dL 0.1-1. 2 normal Not Available [facility] [address] [place] [address], [address], 12/26/2024 10:40:33 12/27/19 25 12/26/2024 COMP. METAB OLIC PANEL alkaline phosphatase 107 U/L 30-121 normal Not Available [facility] [address] [place] [address], [address], 12/26/2024 10:40:33 12/27/19 25 12/26/2024 COMP. METAB OLIC PANEL AST 21 U/L 0-32 normal Not Available [facility] [address] [place] [address], [address], 12/26/2024 10:40:33 12/27/19 25 12/26/2024 COMP. METAB OLIC PANEL ALT 18 U/L 0-33 normal Not Available [facility] [address] [place] [address], [address], 12/26/2024 10:40:33 12/27/19 25 12/26/2024 COMP. METAB OLIC PANEL GFR 75 >= 60 normal NOT E New calcu latleonardo n for GFR (CKD- EPI 2020) is formu lissett witho ut race adjus tment facto rs at the [facility] menda tion of the [employer] ation and [place] [facility] [employer] of Nephr ology . This calcu latio n has not been valid ated in pregn ant women . For [place] nts refer to https ://ned salazar.roselia zazueta.o rg/pr mary martin s/KDO QI/gf r_cal culat orPed Not Available [facility] [address] [place] [address], [address], 12/26/2024 10:40:33 12/27/19 25 12/26/2024 TSH WITH REFLE X FT4 TSH with reflex FT4 0.399 u[IU] /mL 0.270- 4.200 normal Not Available [facility] [address] [place] [address], [address], 12/26/2024 10:40:36 12/27/19 25 12/26/2024 COMPL ETE BLOOD COUNT white blood cells 7.2 10*3/ uL 3.8-10 .8 normal Not Available [facility] [address] [place] [address], [address], 12/26/2024 10:57:19 12/27/19 25 12/26/2024 COMPL ETE BLOOD COUNT red blood cells 3.99 10*6/ uL 3.80-5 .20 normal Not Available [facility] [address] [place] [address], [address], 12/26/2024 10:57:19 12/27/19 25 12/26/2024 COMPL ETE BLOOD COUNT hemoglobin 12.3 g/dL 12.0-1 6.0 normal Not Available [facility] [address] [place] [address], [address], 12/26/2024 10:57:19 12/27/19 25 12/26/2024 COMPL ETE BLOOD COUNT hematocrit 38.0 % 35.0-4 7.0 normal Not Available [facility] [facility] [address] [place] [address], [address], 12/26/2024 10:57:19 12/27/19 25 12/26/2024 COMPL ETE BLOOD COUNT MCV 95 fL 80-100 normal Not Available [facility] [address] [place] [address], [address], 12/26/2024 10:57:19 12/27/19 25 12/26/2024 COMPL ETE BLOOD COUNT MCH 31 pg 26-35 normal Not Available [facility] [address] [place] [address], [address], 12/26/2024 10:57:19 12/27/19 25 12/26/2024 COMPL ETE BLOOD COUNT MCHC 32 g/dL 32-36 normal Not Available [facility] [address] [place] [address], [address], 12/26/2024 10:57:19 12/27/19 25 12/26/2024 COMPL ETE BLOOD COUNT RDW 14.3 % 11.0-1 5.0 normal Not Available [facility] [address] [place] [address], [address], 12/26/2024 10:57:19 12/27/19 25 12/26/2024 COMPL ETE BLOOD COUNT MPV 7.8 fL 6.2-10 .5 normal Not Available [facility] [address] [place] [address], [address], 12/26/2024 10:57:19 12/27/19 25 12/26/2024 COMPL ETE BLOOD COUNT platelet count 236 10*3/ uL 150-40 0 normal Not Available [facility] [address] [place] [address], [address], 12/26/2024 10:57:19 12/27/19 25 12/26/2024 COMPL ETE BLOOD COUNT neutrophil,a bsolute 4.9 10*3/ uL 1.6-8. 4 normal Not Available [facility] [address] [place] [address], [address], 12/26/2024 10:57:19 12/27/19 25 12/26/2024 COMPL ETE BLOOD COUNT lymphocyte,a bsolute 1.4 10*3/ uL 0.4-5. 1 normal Not Available [facility] [address] [place] [address], [address], 12/26/2024 10:57:19 12/27/19 25 12/26/2024 COMPL ETE BLOOD COUNT monocyte,abs olute 0.7 10*3/ uL 0.0-1. 2 normal Not Available [facility] [address] [place] [address], [address], 12/26/2024 10:57:19 12/27/19 25 12/26/2024 COMPL ETE BLOOD COUNT eosinophil,a bsolute 0.2 10*3/ uL 0.0-0. 8 normal Not Available [facility] [address] [place] [address], [address], 12/26/2024 10:57:19 12/27/19 25 12/26/2024 COMPL ETE BLOOD COUNT basophil,abs olute 0.1 10*3/ uL 0.0-0. 3 normal Not Available [facility] [address] [place] [address], [address], 12/26/2024 10:57:19 12/27/19 25 12/26/2024 COMPL ETE BLOOD COUNT % neutrophils 67.8 % 42.0-7 8.0 normal Not Available [facility] [address] [place] [address], [address], 12/26/2024 10:57:19 12/27/19 25 12/26/2024 COMPL ETE BLOOD COUNT % lymphocytes 19.6 % 11.0-4 7.0 normal Not Available [facility] [address] [place] [address], [address], 12/26/2024 10:57:19 12/27/19 25 12/26/2024 COMPL ETE BLOOD COUNT % monocytes 9.5 % 0.0-11 .0 normal Not Available [facility] [address] [place] [address], [address], 12/26/2024 10:57:19 12/27/19 25 12/26/2024 COMPL ETE BLOOD COUNT % eosinophils 2.3 % 0.0-7. 0 normal Not Available [facility] [address] [place] [address], [address], 12/26/2024 10:57:19 12/27/19 25 12/26/2024 COMPL ETE BLOOD COUNT % basophils 0.8 % 0.0-3. 0 normal Not Available [facility] [address] [place] [address], [address], 12/26/2024 10:57:19 12/27/19 25 12/26/2024 COMPL ETE BLOOD COUNT nucleated red cells 0.0 % 0.0-0. 9 normal Not Available [facility] [address] [place] [address], [address], 12/26/2024 10:57:19 12/27/19 25 12/26/2024 COMPL ETE BLOOD COUNT nucleated RBCs, absolute 0.00 10*3/ uL not estab. normal Not Available [facility] [address] [place] [address], [address], 12/26/2024 10:57:19 12/27/19 25 12/26/2024 FOLIC ACID folic acid 13.2 NG/mL 4.6-34 .8 normal Not Available [facility] [address] [place] [address], [address], 12/26/2024 11:35:28 12/27/19 25 12/26/2024 VITAM IN B12 vitamin B12 414 pg/mL 232-12 45 normal Not Available [facility] [address] [place] [address], [address], 12/26/2024 11:35:30 12/27/19 25 12/26/2024 VITAM IN D 25-OH vitamin D 25-oh, total 52 NG/mL >=30 NG/mL normal Not Available [facility] [address] [place] [address], [address], 12/26/2024 11:35:32 12/27/19 25 12/26/2024 ESR, AUTOM ATED ESR, automated 19 mm 0-29 normal Not Available [facility] [address] [place] [address], [address], 12/26/2024 12:39:43 12/27/19 25 12/26/2024 URINA LYSIS color Pale yellow normal Not Available [facility] [address] [place] [address], [address], 12/26/2024 12:48:24 12/27/19 25 12/26/2024 URINA LYSIS appearance Clear normal Not Available [facility] [address] [place] [address], [address], 12/26/2024 12:48:24 12/27/19 25 12/26/2024 URINA LYSIS glucose Normal mg/dL normal normal Not Available [facility] [address] [place] [address], [address], 12/26/2024 12:48:24 12/27/19 25 12/26/2024 URINA LYSIS bilirubin Negati ve mg/dL negati ve normal Not Available [facility] [address] [place] [address], [address], 12/26/2024 12:48:24 12/27/19 25 12/26/2024 URINA LYSIS ketone Negati ve mg/dL negati ve normal Not Available [facility] [address] [place] [address], [address], 12/26/2024 12:48:24 12/27/19 25 12/26/2024 URINA LYSIS specific gravity 1.004 1.003- 1.035 normal Not Available [facility] [address] [place] [address], [address], 12/26/2024 12:48:24 12/27/19 25 12/26/2024 URINA LYSIS blood Negati ve /uL negati ve normal Not Available [facility] [address] [place] [address], [address], 12/26/2024 12:48:24 12/27/19 25 12/26/2024 URINA LYSIS pH 6.5 5.0 - 8.0 normal Not Available [facility] [address] [place] [address], [address], 12/26/2024 12:48:24 12/27/19 25 12/26/2024 URINA LYSIS protein Negati ve mg/dL negati ve normal Not Available [facility] [address] [place] [address], [address], 12/26/2024 12:48:24 12/27/19 25 12/26/2024 URINA LYSIS urobilinogen Normal mg/dL normal normal Not Available [facility] [address] [place] [address], [address], 12/26/2024 12:48:24 12/27/19 25 12/26/2024 URINA LYSIS nitrite Negati ve negati ve normal Not Available [facility] [address] [place] [address], [address], 12/26/2024 12:48:24 12/27/19 25 12/26/2024 URINA LYSIS leukocyte esterase Negati ve /uL negati ve normal Not Available [facility] [address] [place] [address], [address], 12/26/2024 12:48:24 12/27/19 25 12/26/2024 URINA LYSIS WBC, urine 0-5 0-5/hp f normal Not Available [facility] [address] [place] [address], [address], 12/26/2024 12:48:24 12/27/19 25 12/26/2024 URINA LYSIS RBC, urine 0-2 0-2/hp f normal Not Available [facility] [address] [place] [address], [address], 12/26/2024 12:48:24 12/27/19 25 12/26/2024 URINA LYSIS squamous epi. cells 0-5 0-5/hp f normal Not Available [facility] [address] [place] [address], [address], 12/26/2024 12:48:24 12/27/19 25 12/26/2024 URINA LYSIS bacteria Trace /hpf none seen abnormal Not Available [facility] [address] [place] [address], [address], 12/26/2024 12:48:24 12/27/19 25 12/27/2024 C3 C3 140 mg/dL 83-193 normal Not Available [facility] [address] [place] [address], [address], 12/27/2024 18:21:52 12/27/19 25 12/27/2024 C4 C4 17 mg/dL 15-57 normal Not Available [facility] [address] [place] [address], [address], 12/27/2024 18:21:54 12/27/19 25 12/31/2024 ANTI DNA (DS) AB, REFLE X TITER DNA (ds) Ab POSITI VE negati ve abnormal Not Available [facility] [address] [place] [address], [address], 12/31/2024 20:01:13 12/27/19 25 12/31/2024 ANTI DNA (DS) AB, REFLE X TITER anti DNA Ab,titer 1:20 titer <1:10 high Not Available [facility] [address] [place] [address], [address], 12/31/2024 20:01:13 11/19/19 21 11/17/2020 audio gram No observ ation record ed. BARCODE Not Available 2020 09:40:59 11/29/19 21 11/27/2020 MR brain and IAC w/wo contr ast [place] [address] [place] [address] Ronn villafuerte Name: DORIS villafuerte : 9[birth year] Ronn villafuerte 2 Orderi ng Provid er: JOSE ANTONIO [facility]STER PHIL EXAM DATE: 2020 EXAM: MR BRAIN AND IAC W/WO CONTRA ST HISTOR Y: 65-yea r-old female with hearin g loss and tinnit us in the right ear. COMPAR JENNY: None. The patirenetta villafuerte did not requir e sedati on for this exam. FINDIN GS: The ventri cles are symmet sukhjinder, and normal in size. There is no mass, mass effect , or midlin e shift. There is no abnorm al extra- axial fluid, intrac ranial hemorr mekhi, or infarc tion. The diffus ion weight ed sequen misael are normal . There are minima l perive ntricu lar white matter change s. There are multip le small subcor tical white matter lesion s. After intrav enous admini strati on of 7.[address] ([facility] [address]25-0 1), there is no abnorm al enhanc ement in the brain. There is no mass or abnorm al enhanc ement along the crania l nerves or in the fall internship al audito ry canals . The fall internship al caroti d and basila r flow-v oids are normal . There is minima l mucosa l thicke blanca in the parana josi sinuse s. There is modera te fluid in the mastoi d air cells. IMPRES FAN: 1. There are mild, nonspe cific white matter lesion s in the brain. 2. There is modera te fluid in the mastoi d air cells. Interp reted By: Alanis dang MD Electr onical ly Signed By: Alanis dang MD on 11/29/19 21 8:00 [facility] [address] [place] [address], [address], 12/01/2020 10:27:31 09/25/19 25 09/25/2024 XR, lumbo sacra l spine , 2 or [address] [address] Ronn villafuerte Name: DORIS villafuerte : [birth year] Ronn villafuerte 2 Orderi ng Provid er: GAMALIEL [facility]STER PHIL EXAM DATE: 2024 EXAM: XR LUMBAR AP/LAT CLINIC AL INFORM ATION: Back pain. IMAGES PROVID ED: AP, latera l and coned down views of the lumbar spine. COMPAR JENNY: None. FINDIN GS: Mild levosc oliosi s. No signif icant sublux ation. Severa l disc levels are narrow ed and there is diffus e degene rative spurri ng. No radiog raphic eviden ce of injury is noted. IMPRES FAN: Modera te degene rative disc diseas e of the L-spin e Interp reted By: Lobito Ivory MD Electr onical ly Signed By: Lobito Ivory MD on 09/25/19 10:29 AM [facility] [address], [address], 10/02/2024 08:49:42 Result Notes Documentation Provider Name and Address Organization Details Recorded Time Xr, Lumbosacral Spine, 2 Or 3 View : [address] [address] Patient Name: DORIS MERINO Patient : 1955 Patient Ordering Provider: GAMALIEL RODGERS EXAM DATE: 09/25/2024 EXAM: XR LUMBAR AP/LAT CLINICAL INFORMATION: Back pain. IMAGES PROVIDED: AP, lateral and coned down views of the lumbar spine. COMPARISON: None. FINDINGS: Mild levoscoliosis. No significant subluxation. Several disc levels are narrowed and there is diffuse degenerative spurring. No radiographic evidence of injury is noted. IMPRESSION: Moderate degenerative disc disease of the L-spine Interpreted By: Lobito Ivory MD [facility] 15:29:23 Procedures Surgical History Date Name Laterality Status Provider Name and Address Organization Details Recorded Time 09/25/19 25 Injection Joint/Bursa, Major, w/o US completed GAMALIEL RODGERS MD [address] [place], [address], [facility] 09/25/2024 13:25:17 11/25/19 21 Tympanogram completed ASHWINI SCHNEIDER, AUD [address] [place], [address], [facility] 11/24/2020 13:44:20 11/25/19 21 Audiogram completed ASHWINI SCHNEIDER, AUD [address] [place], [address], [facility] 11/24/2020 13:44:18 11/18/19 21 Tympanogram completed ASHWINI SCHNEIDER AUD [address] [place], [address], [facility] 11/17/2020 15:53:39 11/18/19 21 Audiogram completed ASHWINI SCHNEIDER, AUD [address] [place], [address], [facility] 11/17/2020 15:53:37 Cholecystectomy completed Mae Fiore [facility] 11/17/2020 15:05:03 procedure on knee completed Mae WHITFIELD [facility] 11/17/2020 15:05:20 Imaging Results None recorded. Procedure Notes None recorded. Medical Equipment None Reported. Allergies No known drug allergies Medications Name Sig Start Date Stop Date Status Note LastModified by Organization Details LastModified Time Synthroid 125 mcg tablet Daily active Frequenc y: daily;Me dication Descript ion: levothyr oxine; Dosage:1 ; Route:or al; refills: 0; Quantity :30 tablet Not Available Not Available Not Available prednison e 5 mg tablet take 4 tabs x 3 days, 3 tabs x 3 days, 2 tabs x 3 days, 1 tab x 3 days then off. 2024 active Not Available Not Available Not Avai lable Nexium 40 mg capsule,d elayed release Daily active Duration : 30 days;Dale quency: daily;Me dication Descript ion: esomepra zole; Dosage:1 ; Route:or al; refills: 0; Quantity :30 enteric coated capsule Not Available Not Available Not Available Motrin IB 200 mg tablet Every four hours 11/17 completed Frequenc y: q4h;Alt Frequenc y: prn;Medi cation Descript ion: ibuprofe n; Route:or al; refills: 0 Not Available Not Available Not Available amlodipin e 2.5 mg tablet Take 1 tablet every day by oral route. 2024 active Not Available Not Available Not Avai lable amlodipin e 5 mg tablet Take 1 tablet every day by oral route. 2024 active Not Available Not Available Not Avai lable leflunomi de 20 mg tablet Take 1 tablet every day by oral route. 2024 active Not Available Not Available Not Avai lable amitripty line 10 mg tablet Take 1 tablet every day by oral route. 2024 active Not Available Not Available Not Avai lable pantopraz ole 40 mg tablet,de layed release Take 1 tablet every day by oral route. active Not Available Not Available No t Available hydroxych loroquine 200 mg tablet Take 1 tablet every day by oral route. 2024 active Not Available Not Available Not Avai lable Premarin 0.625 mg tablet active Duration : 10 days;Med ication Descript ion: conjugat ed estrogen s; Route:or al; refills: 0; Quantity :21 tablet Not Available Not Available Not Available Plaquenil active Not Available Not Lisa ilable Not Available Vitamin D3 active 50mcg Not Available Not Available Not Available levothyro xine 137 mcg capsule Take 1 capsule every day by oral route. active Not Available Not Available No t Available metoprolo l succinate ER 25 mg capsule sprinkle, ext. release 24 hr Take 1 capsule every day by oral route. active Not Available Not Available No t Available Vitals Date Recorded Body weight Heart rate Oxygen saturation Oxygen saturation in Arterial blood by Pulse oximetry Systolic blood pressure Diastolic blood pressure Provider Name and Address Organization Details Last Updated DateTime 5 51797.3 7 g 94 /min 99 % 99 % 120 mm[Hg] 78 mm[Hg] Maggie Dick [facility] 5 08:53:27 Date Recorded Body temperature Heart rate Body height Body mass index (BMI) Body weight Systolic blood pressure Diastolic blood pressure Provider Name and Address Organization Details Last Updated DateTime 98.1 [degF] 94 /min 172.72 cm 23.7 kg/m2 34101.4 1 g 129 mm[Hg] 74 mm[Hg] Mae Dias [facility] 1 15:07:55 Date Recorded Body weight Body mass index (BMI) Body height Respiratory rate Systolic blood pressure Diastolic blood pressure Provider Name and Address Organization Details Last Updated DateTime 5 66071.5 9 g 24 kg/m2 172.72 cm 14 /min 114 mm[Hg] 60 mm[Hg] Albina Cabrera [facility] 5 09:09:14 Social History Question Answer Notes LastModified by [employer] Details LastModified Time Tobacco Smoking Status Never Smoker Mae Dias [facility] 11/17/2020 15:04:46 How Much Tobacco Do You Chew? None [email or web address] Information not available 11/17/2020 What Was The Date Of Your Most Recent Tobacco Screening? 12/26/2024 [email or web address] Information not available 12/26/2024 Sex: Female Functional Status Question Answer Note LastModified by [employer] Details LastModified Time What is your level of alcohol consumption? Occasional [email or web address] Information not available 11/17/2020 Mental Status None recorded. Family History Relationship Description Onset Age of this Age Resolved Age Notes LastModified by Organization Details LastModified Time Mother Disorder of thyroid gland [email or web address] Not available 11/17 15:04:12 Mother Heart disease [email or web address] Not available 11/17 15:04:22 Mother Hypertensive disorder [email or web address] Not available 11/17 15:04:29 Father Heart disease [email or web address] Not available 11/17 15:04:22 Medical History Condition Response Emphysema N COPD N Arthritis Y Acid Reflux (GERD) Y Rheumatoid Arthritis Y Thyroid Problems Y Diabetes N Bleeding Disorder N Asthma N Heart Disease N Hypertension Y Gynecological HistoryNo gynecological history recorded. Obstetrics History GPAL:G 0 P 0 0 0 0 Past Encounters Encounter ID Performer Location Encounter Start Date Encounter Closed Date Diagnosis/Indication Diagnosis SNOMED-CT Code Diagnosis ICD10 Code Diagnosis Note [id number] JOSE ANOTNIO RODGERS MD [place] [facility] [address] [place] [address] 11/17/2020 14:54:35 11/17/2020 16:07:33 Sensorineural hearing loss of bilateral ears 391387181 H90.3 Asymmetric al sensorineural hearing loss 529236799 H90.5 -11/17/20 R>L, Audiogram= L moderate SNHL, R severe SNHL, tymps A bilateral, WDS 100 bilateral Bilateral tinnitus 18475 36080 102 H93.13 -x 2 months [id number] TONG DICKSON [place] [facility] [address] [facility] [place] [address] 11/17/2020 15:53:26 11/17/2020 16:01:36 Sensorineural hearing loss of bilateral ears 274548544 H90.3 Asymmetric al sensorineural hearing loss 093425634 H90.5 Bilateral tinnitus 51328 30163 102 H93.13 Bilateral earache 786597 003 H92.03 [id number] TONG DICKSON [place] [facility] [address] [place] [address] 11/24/2020 13:43:50 11/24/2020 13:45:17 Sensorineural hearing loss of bilateral ears 438846193 H90.3 Bilateral tinnitus 25104 46514 102 H93.13 Bilateral earache 933423 003 H92.03 Asymmetric al sensorineural hearing loss 249491775 H90.5 [id number] GAMALIEL RODGERS MD [facility] [address] [place] [address] 09/25/2024 08:43:46 09/26/2024 15:38:05 Systemic lupus erythematosus 26952479 M32.9 + BARRY, + dsDNA, + RF, pericardit is, inflammato ry arthritis, rash, Raynaud's, fatigue, cytopenias , sicca symptoms Evidence of erosive disease on X rays in 2021 Previous Rx: imuran, Benlysta, Enbrel - continue leflunomid e 20 mg daily- continue hydroxychl oroquine 200 mg BID- ibuprofen daily as needed- prednisone to have on hand as needed for flare- check lupus labs today Trochanter ic bursitis of right hip [id number] 36497 M70.61 - saw orthopedic s-- Dr. Guerra who did an ultrasound guided trochanter ic bursa injection 05/03/2024- injected the right trochanter ic bursa 09/25/2024 with 1 cc 80 mg depomedrol and 2 cc 1% lidocaine per procedure note- XR of the lumbar spine- s/p physical therapy; encouraged her to continue her exercises at home Long-term current use of immunosuppressive drug 475164284 Z79.60 - labs every 3 months on current medication s- yearly eye exams - We discussed side effects of leflunomid e including nausea, diarrhea, cytopenias , hepatitis, infection. We discussed that leflunomid e can cause serious defects and that a woman should not become while taking this medication or for6 months after taking this medication . We discussed the need to refrain from alcohol while taking this medication and to have regular laboratory monitoring while taking this medication .- We discussed the possible side effects of hydroxychl oroquine including headache, nausea, diarrhea, rare retinal pigmentati on, very rare neuromuscu lar toxicity. I recommende d eye exams every 6-12 months to monitor for retinal toxicity Fatigue 29587345 R53.83 Screening for osteoporosis 559674879 Z13.820 DEXA 12/13/2023 was normal - request records from [facility]- continue 2000 IU vitamin D3 daily- continue 600 mg calcium daily- continue working on daily weight bearing exercise Raynaud's phenomenon 266 891643 I73.00 - To help prevent the occurrence of Raynaud's phenomenon , preventati ve measures involve avoiding caffeine, not smoking, keeping the entire body warm, avoiding cold when possible and wearing gloves or mittens when exposed to colder temperatur es.- trial amlodipine 2.5 mg daily [id number] GAMALIEL RODGERS MD [facility] [address] [place] [address] 12/26/2024 08:34:07 12/27/2024 04:32:15 Systemic lupus erythematosus 11786322 M32.9 + BARRY, + dsDNA, + RF, pericardit is, inflammato ry arthritis, rash, Raynaud's, fatigue, cytopenias , sicca symptoms Evidence of erosive disease on X rays in 2021 Previous Rx: imuran, Benlysta, Enbrel - continue leflunomid e 20 mg daily- continue hydroxychl oroquine 200 mg BID- ibuprofen daily as needed- prednisone to have on hand as needed for flare- check lupus labs today Trochanter ic bursitis of right hip [id number] 93005 M70.61 - saw orthopedic s-- Dr. Guerra who did an ultrasound guided trochanter ic bursa injection 05/03/2024- 09/2024 injected the right trochanter ic bursa 09/25/2024 with 1 cc 80 mg depomedrol and 2 cc 1% lidocaine- XR of the lumbar spine with moderate osteoarthr itis- s/p physical therapy; encouraged her to continue her exercises at home Long-term current use of immunosuppressive drug 803455965 Z79.60 - labs every 3 months on current medication s- yearly eye exams - We discussed side effects of leflunomid e including nausea, diarrhea, cytopenias , hepatitis, infection. We discussed that leflunomid e can cause serious defects and that a woman should not become while taking this medication or for6 months after taking this medication . We discussed the need to refrain from alcohol while taking this medication and to have regular laboratory monitoring while taking this medication .- We discussed the possible side effects of hydroxychl oroquine including headache, nausea, diarrhea, rare retinal pigmentati on, very rare neuromuscu lar toxicity. I recommende d eye exams every 6-12 months to monitor for retinal toxicity Fatigue 69220048 R53.83 - additional labs as below- I think she is having more OA pain- add amitriptyl ine 10 mg QHS to help with pain at night and sleep Screening for osteoporosis 295676194 Z13.820 DEXA 12/13/2023 was normal - request records from [facility]- continue 2000 IU vitamin D3 daily- continue 600 mg calcium daily- continue working on daily weight bearing exercise Raynaud's phenomenon 266 568513 I73.00 - To help prevent the occurrence of Raynaud's phenomenon , preventati ve measures involve avoiding caffeine, not smoking, keeping the entire body warm, avoiding cold when possible and wearing gloves or mittens when exposed to colder temperatur es.- increase amlodipine to 5 mg daily Health Concerns Section Related Observation LastModified by Organization Detai ls LastModified Time None Recorded Concern Status LastModified by Organization Details LastModified Time None Recorded Advance Directives Directive None Recorded Payers Insurance Date Sequence Insurance Name Policy Number Policy Sanz Covered Member ID Sanz Member ID Guarantor Name 01/02/2025 1 [id number] [id number] Doris Merino [id number] Doris Merino Notes Date Note Type Note Provider Name and Address Organization Details Recorded Time 11/17/2020 text/html Doris is a 65 yea r old being seen in consultation at the request of Dr. Randhawa for tinnitus. She has been experiencing a cricket sound in her ears for the past two months that seems to be worse at night. She also complains of bilateral ear fullness and discomfort for the past several weeks. She denies any drainage from her ears today. She did have several ear aches as a young child. She recently had a hearing screen at work, it did show some hearing loss. She does take Plaquenil for Lupus, and has for several years. She does have a history of TMJ, and she does grind her teeth at night. JOSE ANTONIO RODGERS MD [address] [place] [address], [phone], [facility] 11/17/2020 17:59:33 09/25/2024 text/html Doris Merino i s a 69 y.o. female who has a past medical history of systemic lupus, osteoarthritis, GERD, hypothyroidism, and SVT who presents [facility]. She is a previous patient of mine from [facility] and has been following with Dr. Maame Purcell in my absence. Her lupus is manifested by inflammatory arthritis, rash, Raynaud's, fatigue.She has been struggling with trochanteric bursitis.In june, she thinks she had a flare. Had a rash on her cheeks. Sores in her mouth.She has been struggling with bursitis in the right hip.She went to see Dr. Guerra-- orthopedics. He did a pelvic x-ray which showed worse osteoarthritis in the left hip. He did an ultrasound-guided trochanteric bursa injection on the right which only helped about 6 weeks. She has done physical therapy which completed about a month ago which was minimally helpful. She is going to [place] at the end of the month and she wants to be able to walk. She otherwise denies any chest pain, sob, abd pain, nausea, vomiting, fevers, rashes, oral ulcers, dry eyes, dry mouth, headaches, hematuria, VTE's. + raynaud's. GAMALIEL RODGERS MD [address] [place] [address], [phone], [facility] 09/25/2024 13:25:46 12/26/2024 text/html Doris Merino i s a 69 y.o. female who has a past medical history of systemic lupus, osteoarthritis, GERD, hypothyroidism, and SVT who presents [facility]. She is a previous patient of mine from [facility] and has been following with Dr. Maame Purcell in my absence. Her lupus is manifested by inflammatory arthritis, rash, Raynaud's, fatigue.She has been struggling with trochanteric bursitis.In june, she thinks she had a flare. Had a rash on her cheeks. Sores in her mouth.She has been struggling with bursitis in the right hip.She went to see Dr. Guerra-- orthopedics. He did a pelvic x-ray which showed worse osteoarthritis in the left hip. He did an ultrasound-guided trochanteric bursa injection on the right which only helped about 6 weeks. She has done physical therapy which completed about a month ago which was minimally helpful. Moderate OA in the lumbar spine by X ray. Trochanteric bursa injection we did last visit really helped her. She otherwise denies any chest pain, sob, abd pain, nausea, vomiting, fevers, rashes, oral ulcers, dry eyes, dry mouth, headaches, hematuria, VTE's. + raynaud's. She has been more achy. Lower back, legs, hands, shoulders. GMAALIEL RODGERS MD [address] [place], [address], [facility] 12/26/2024 09:32:54 OBGyn Episode No OBEpisode recorded.
--- OUTSIDE RECORDS SUMMARY | 2025-02-14 07:47 | XMS_ITS | Continuity of Care Document ---
Author Organization [facility], RHEUMATOLOGY SB Address [address] [place] [id number] Care Team Providers Care Matrix Repairer Name Role Phone LOBITO RANDHAWA Primary Care Provider Assessment No assessment recorded. Plan of Treatment Reminders Order Date Submit Date Provider Last Modified By Organization Details Last Modified Time Details Appointments RHEUM RECHECK 2024 09:45A M GAMALIEL MERCEDES MD Not available Not available Not available Lab CMP, serum or plasma 2024 025 [facility], [address] [place] [address], [id number], 12/26/2024 10:40:33 CBC w/ auto diff 2024 025 [facility], [address] [place] [address], [id number], 12/26/2024 10:57:19 urinalys is, complete 2024 025 [facility], [address] [place] [address], [id number], 12/26/2024 12:48:24 ESR (erythro cyte sediment ation rate), blood 2024 025 [facility], [address] [place] [address], [id number], 12/26/2024 12:39:44 C3 (complem ent), serum or plasma 2024 025 [facility], [address] [place] [address], [id number], 12/27/2024 18:21:52 C4 (complem ent), serum or plasma 2024 025 [facility], [address] [place] [address], [id number], 12/27/2024 18:21:54 dsDNA Ab, serum 2024 025 [facility], [address] [place] [address], [id number], 12/31/2024 20:01:13 vitamin D, 25-hydro xy, total, serum 2024 025 [facility], [address] [place] [address], [id number], 12/26/2024 11:35:32 CK (creatin e kinase), total, serum 2024 025 [facility], [address] [place] [address], [id number], 12/26/2024 10:40:28 vitamin B12, serum 2024 025 [facility], [address] [place] [address], [id number], 12/26/2024 11:35:30 folate, serum 2024 025 [facility], [address] [place] [address], [id number], 12/26/2024 11:35:28 TSH, serum, reflex free T4 2024 025 [facility], [address] [place] [address], [id number], 12/26/2024 10:40:36 ferritin , serum or plasma 2024 025 [facility], [address] [place], [address], 12/26/2024 10:40:31 Referral None recorded . Procedures None recorded . Surgeries None recorded . Imaging None recorded . Medication Orders hydroxyc hloroqui ne 200 mg tablet 2024 025 [facility], [address], [address], 12/26/2024 09:27:33 leflunom huber 20 mg tablet 2024 025 [facility], [address], [address], 12/26/2024 09:27:32 amlodipi ne 5 mg tablet 2024 025 [facility], [address], [address], 12/26/2024 09:27:32 amitript yline 10 mg tablet 2024 025 [facility], [address], [address], 12/26/2024 09:27:33 Patient TargetsNo targets recorded. Patient InstructionsNo instructions recorded. Reason for Referral None Reported. Procedures Surgical History Date Name Laterality Status Provider Name and Address Organization Details Recorded Time 09/25/19 25 Injection Joint/Bursa, Major, w/o [place] [address] [place] [address], [phone], [facility] 09/25/2024 13:25:17 11/25/19 21 Tympanogram completed TONG DICKSON [address] [place], [address], [facility] 11/24/2020 13:44:20 11/25/19 21 Audiogram completed TONG DICKSON [address] [place], [address], [facility] 11/24/2020 13:44:18 11/18/19 21 Tympanogram completed ASHWINI JENNIE, AUD [address] [place], [address], [facility] 11/17/2020 15:53:39 11/18/19 21 Audiogram completed ASHWINI JENNIE, AUD [address] [place], [address], [facility] 11/17/2020 15:53:37 Cholecystectomy completed Mae Fiore [facility] 11/17/2020 15:05:03 procedure on knee completed Mae Dias [facility] 11/17/2020 15:05:20 Imaging Results None recorded. Procedure [...] t Available Vitals Date Recorded Body weight Body mass index (BMI) Body height Respiratory rate Systolic blood pressure Diastolic blood pressure Provider Name and Address Organization Details Last Updated DateTime 5 15793.5 9 g 24 kg/m2 172.72 cm 14 /min 114 mm[Hg] 60 mm[Hg] [facility] 5 09:09:14 Social History Question Answer Notes LastModified by [employer] Details LastModified Time Tobacco Smoking Status Never Smoker Mae Dias [facility] 11/17/2020 15:04:46 How Much Tobacco Do You Chew? None [email or web address] Information not available 11/17/2020 What Was The Date Of Your Most Recent Tobacco Screening? 12/26/2024 [email or web address] Information not available 12/26/2024 Sex: Female Functional Status Question Answer Note LastModified by [employer] Details LastModified Time What is your level of alcohol consumption? Occasional [email or web address] Information not available 11/17/2020 Mental Status None recorded. Family History Relationship Description Onset Age of this Age Resolved Age Notes LastModified by Organization Details LastModified Time Mother Disorder of thyroid gland [email or web address] Not available 11/17 15:04:12 Mother Heart disease [email or web address] Not available 11/17 15:04:22 Mother Hypertensive disorder [email or web address] Not available 11/17 15:04:29 Father Heart disease [email or web address] Not available 11/17 15:04:22 Medical History Condition Response Diabetes N Bleeding Disorder N Arthritis Y Emphysema N Acid Reflux (GERD) Y Thyroid Problems Y COPD N Asthma N Heart Disease N Rheumatoid Arthritis Y Hypertension Y Gynecological HistoryNo gynecological history recorded. Obstetrics History GPAL:G 0 P 0 0 0 0 Past Encounters Encounter ID Performer Location Encounter Start Date Encounter Closed Date Diagnosis/Indication Diagnosis SNOMED-CT Code Diagnosis ICD10 Code Diagnosis Note [id number] GAMALIEL MERCEDES MD [facility] [address] [place] [address] 12/26/2024 08:34:07 12/27/2024 04:32:15 Systemic lupus erythematosus 60552843 M32.9 + BARRY, + dsDNA, + RF, [...] today Trochanter ic bursitis of right hip 3051844731 48567 M70.61 - saw orthopedic s-- Dr. Guerra who did an ultrasound guided trochanter ic bursa injection 05/03/2024- 09/2024 injected the right trochanter ic bursa 09/25/2024 with 1 cc 80 mg depomedrol and 2 cc 1% lidocaine- XR of the lumbar spine with moderate osteoarthr itis- s/p physical therapy; encouraged her to continue her exercises at home Long-term current use of immunosuppressive drug 726363735 Z79.60 - labs every 3 months on [...] months to monitor for retinal toxicity Fatigue 00595293 R53.83 - additional labs as below- I think she is having more OA pain- add amitriptyl ine 10 mg QHS to help with pain at night and sleep Screening for osteoporosis 772197578 Z13.820 DEXA 12/13/2023 was normal - request records from [facility]- continue 2000 IU vitamin D3 daily- continue 600 mg calcium daily- continue working on daily weight bearing exercise Raynaud's phenomenon 266 820887 I73.00 - To help prevent the occurrence [...] by Organization Details LastModified Time None Recorded Payers Encounter Date Sequence Insurance Name Policy Number Policy Sanz Covered Member ID Sanz Member ID Guarantor Name 12/26/2024 1 [employer] [id number] Doris Merino [id number] Doris Merino Notes Date Note Type Note Provider Name and Address Organization Details Recorded Time 12/26/2024 text/html Doris Merino i s a 69 y.o. female who has a past medical history of systemic lupus, osteoarthritis, GERD, hypothyroidism, and SVT who presents to [facility]. She is a previous patient of mine from [facility] and has been following with Dr. Maame [...] more achy. Lower back, legs, hands, shoulders. GAMALIEL MERCEDES MD [address] [place], [address], [facility] 12/26/2024 09:32:54 OBGyn Episode No OBEpisode recorded.
--- OUTSIDE RECORDS SUMMARY | 2025-02-14 07:47 | XMS_ITS | Encounter Summary ---
Author Organization [facility] Address [address] [place] [id number] Phone [email or web address] Care Team Providers Care Barber Tool Sharpener Name Role Phone Sim Logan MD Primary Care Provider [phone] Encounter Details Date Type Department Care Team (Late st Contact Info) Description 02/13/2025 Orders Only [facility] [address] [place] [address] Angela Cota, JULIET [address] [place] [address] Encounter for screening mammogram for malignant neoplasm of breast Social History Tobacco Use Types Packs/Day Years [...] on file documented as of this encounter Plan of Treatment Not on file documented as of this encounter Procedures Procedure Name Priority Date/Time Associated Diagnosis Comments MAMMOGRAM SCREENING DIGITAL BREAST TOMOSYNTHESIS 3D BILATERAL CPT 41431 Routine 02/13/2025 12:06 PM EDT Encounter for screening mammogram for malignant neoplasm of breast documented in this encounter Results * Mammogram Breast Screening Tomosynthesis Bilateral 74355 (02/13/2025 12:06 PM EDT) Anatomical Region Laterality Modality Breast Bilateral Mammography Tiffanie [place] DO IMG BI PROCEDURES Final Resul t documented in this encounter Visit Diagnoses Diagnosis Encounter for screening mammogram for malignant neoplasm of breast documented in this encounter Care Teams Barber Tool Sharpener Relationship Specialty Start Date End Date Sim Logan MD [address] [place] [address] PCP - General Internal Medicine 07/22/23 documented as of this encounter
--- NOTE | 2025-02-14 08:00 | MM_ITS ---
PROCEDURE INFORMATION: Exam: MG Bilateral Screening 3D Mammography Exam date and time: 02/14/2025 7:53 AM Age: 70 years old Clinical indication: Screening examination TECHNIQUE: Imaging protocol: Bilateral Screening tomosynthesis and 2D mammography including computer-aided detection (CAD) when performed. COMPARISON: 1. MG MM DIG SCREENING MAMM BI W/CAD 10/31/2023 7:51 AM 2. MG MM DIG SCREENING MAMM BI W/CAD 02/24/2022 8:35 AM FINDINGS: MAMMOGRAPHY: Breast composition: There are scattered areas of fibroglandular density. Mass: None. Architectural distortion: None. Calcifications: No suspicious calcifications. Asymmetric density: None. Skin thickening: None. Axillary adenopathy: None. IMPRESSION: No mammographic evidence of malignancy. Annual screening is recommended unless otherwise clinically indicated. ASSESSMENT: BI-RADS Category 1: Negative.
== END 2025-02-14 23:59 | disposition home or self-care (01) ==
LOC: RAD 07:45
PROVIDERS: PCP Family Medicine; Visit Provider Obstetrics & Gynecology
DX: Z12.31 Encounter for screening mammogram for malignant neoplasm of breast (principal); R92.323 Mammographic fibroglandular density, bilateral breasts
CPT/HCPCS: 77063; 77067

== ENCOUNTER 2025-05-21 08:43 | Outpatient (RCR) | payer MEDICARE, OTHER, SELFPAY | END 2025-05-21 23:59 | disposition home or self-care (01) | LOC: PT 08:43 | PROVIDERS: Visit Provider Anesthesiology Pain Medicine | DX: M54.16 Radiculopathy, lumbar region (principal) | CPT/HCPCS: 97162 ==

== ENCOUNTER 2025-06-12 15:00 | Outpatient (RCR) | payer MEDICARE, OTHER, SELFPAY | END 2025-06-17 23:59 | disposition home or self-care (01) | LOC: PT 15:00 | PROVIDERS: Visit Provider Anesthesiology Pain Medicine | DX: M54.16 Radiculopathy, lumbar region (principal) | CPT/HCPCS: 97010; 97110 ==

== ENCOUNTER 2025-08-20 17:00 | Outpatient (RCR) | payer MEDICARE, OTHER, SELFPAY | END 2025-08-20 23:59 | disposition home or self-care (01) | LOC: PT 17:00 | PROVIDERS: Visit Provider Orthopaedic Surgery | DX: Z96.642 Presence of left artificial hip joint (principal) | CPT/HCPCS: 97110; 97161; 97530 ==